=== PATIENT | female | born 1990 | race Hispanic/Latino ===

== ENCOUNTER 2018-01-16 10:52 | Emergency (ER) | payer OTHER ==
[2018-01-16] MEDS ORDERED: NA CHLORIDE 0.9% 1,000 ML ONE (11:37)
[2018-01-16 11:57] LABS: Absolute Neutrophil 15.5 K/uL (1.8-8.0); Basophils % 0.3 % (0-1.3); Hematocrit 38.4 % (36.0-45.0); Lymphocytes % 10.7 % (15.3-44.8); MCH 28.1 pg (27.0-35.0); MCV 84.3 fL (80-100); MPV 8.4 fL (7.6-11.3); Monocytes % 5.6 % (3.3-12.3); RBC Red Blood Cell Count 4.56 M/uL (3.86-4.86)
[2018-01-16 12:07] LABS: BUN Blood Urea Nitrogen 6 mg/dL (7-18); Bicarbonate 26 mmol/L (21-32); Glucose Level 107 mg/dL (74-106); Potassium 3.2 mmol/L (3.5-5.1); Sodium Level 137 mmol/L (136-145)
[2018-01-16] MEDS ORDERED: ACETAMINOPHEN 500 MG TAB ONE (12:46)
[2018-01-16 14:08] LABS: Urine Blood NEGATIVE (NEG); Urine Glucose NEGATIVE (NEG); Urine Protein 1+ (NEG); Urine Specific Gravity 1.025 (1.005-1.030); Urine pH 6.5 (5.0-7.0)
--- NOTE | 2018-01-16 14:25 | RAD REPORT ---
EXAM DESCRIPTION: CT - Soft Tissue Neck Wo Contr - 01/16/2018 2:03 pm CLINICAL HISTORY: Sore throat, possible peritonsillar abscess, patient 9 weeks TECHNIQUE: Axial 3 millimeter thick images of the neck were obtained without IV contrast. Abdominal and pelvic shielding was utilized during the examination. All CT scans are performed using dose optimization technique as appropriate and may include automated exposure control or mA/KV adjustment according to patient size. FINDINGS: Intracranial portion examination shows no gross abnormality. Globes and orbital contents u nremarkable. Mastoid air cells and paranasal sinuses are clear. There is marked enlargement of the left-side tonsil with the superior extent involving the left-side soft palate. Inferior extent reaches the valleculae and pyriform sinuses. . There is local mass effec t. Air or a is decreased approximately 50%. Left-sided the epiglottis is slightly thickened. Within the enlarged left tonsil there is an area of subtle diminished attenuation 3 x 2 cm in size. T onsillar abscess is most likely. The absence of contrast does limit the examination. There is no retr opharyngeal component identifiable. Patient has numerous left-side reactive lymph nodes present. These clustered lymph nodes are up to 15 mm in size. No acute bone finding. No air or foreign body in the soft tissues. IMPRESSION: Grossly enlarged left tonsil with central 3 x 2 cm area of slightly diminished attenuati on. Peritonsillar abscess is most likely in the acute setting. Absence of IV contrast limits full def inition. Left-side of the epiglottis, valleculae, piriform sinus and soft palate are mildly involved by the to nsillar process. Numerous clustered 8-15 mm reactive lymph nodes along the left side of the neck.
[2018-01-16] MEDS ORDERED: LIDOCAINE VISCOUS 2% SOLN 15 ML UDC ONE (15:02)
[2018-01-16] MEDS ORDERED: LIDOCAINE 2% MPF 5 ML VIAL ONE (15:02)
[2018-01-16] MEDS ORDERED: CLINDAMYCIN 600MG/D5W 600 MG/50 ML BAG IV ONE (15:50)
--- NOTE | 2018-01-16 16:32 | ER ---
Nurse's Notes [facility] Name: Marii Capps Age: 27 yrs Sex: Female : 1990 Arrival Date: 01/16/2018 Time: 10:54 Bed 16 Private MD: Diagnosis: Peritonsillar abscess Presentation: 01/16 11:08 Presenting complaint: Patient states: Sore throat for the past week. Was seen in the aj1 clinic on Saturday and told to let it run its course. She was seen at Urgent care today and the strep was negative. They told her to come to the emergency room for further evaluation. States that she has been unable to eat or drink anything. Reports that she is 9 weeks . Transition of care: patient was not received from another setting of care. Onset of symptoms was January 09, 2018. Risk Assessment: Do you want to hurt yourself or someone else? Patient reports no desire to harm self or others. Initial Sepsis Screen: Does the patient meet any 2 criteria? No. Patient's initial sepsis screen is negative. Does the patient have a suspected source of infection? Yes: Other: sore throat. Care prior to arrival: None. 11:08 Method Of Arrival: Ambulatory [facility] 11:08 Acuity: MADELEINE 3 aj1 Triage Assessment: 11:08 General: Appears uncomfortable, Behavior is cooperative. Pain: Pain currently is 10 out aj1 of 10 on a pain scale. EENT: Throat is reddened has enlarged tonsils on left. Neuro: Level of Consciousness is awake, alert, obeys commands. Cardiovascular: Patient's skin is warm and dry. Respiratory: Airway is patent Respiratory effort is even, unlabored, Respiratory pattern is regular, symmetrical. 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 - Social history:: Smoking status: Patient/guardian denies using tobacco. - Ebola Screening: : Patient denies travel to an Ebola-affected area in the 21 days before illness onset. Screenin:47 Abuse screen: Denies threats or abuse. Denies injuries from another. Nutritional ph screening: No deficits noted. Tuberculosis screening: No symptoms or risk factors identified. Fall Risk None identified. Assessment: 11:45 General: Appears in no apparent distress. uncomfortable, well groomed, Behavior is ph calm, cooperative, appropriate for age, Reports feeling ill for > 3 days. Pain: Complains of pain in throat. Neuro: Level of Consciousness is awake, alert, obeys commands, Oriented to person, place, time, situation. Cardiovascular: Capillary refill < 3 seconds Patient's skin is warm and dry. Respiratory: Airway is patent Respiratory effort is even, unlabored, Respiratory pattern is regular, symmetrical, Breath sounds are clear bilaterally. GI: No signs and/or symptoms were reported involving the gastrointestinal system. EENT: Throat is reddened has enlarged tonsils bilaterally Reports pain when swallowing. Derm: Skin is intact, Skin is pink, warm \T\ dry. Musculoskeletal: Circulation, motion, and sensation intact. Range of motion: intact in all extremities. 12:45 Reassessment: Patient appears in no apparent distress at this time. Patient and/or ph family updated on plan of care and expected duration. Pain level reassessed. Patient is alert, oriented x 3, equal unlabored respirations, skin warm/dry/pink. 13:50 Reassessment: Patient appears in no apparent distress at this time. Patient and/or ph family updated on plan of care and expected duration. Pain level reassessed. Patient is alert, oriented x 3, equal unlabored respirations, skin warm/dry/pink. Pt taken to CT via wheelchair. 15:45 Reassessment: Patient appears in no apparent distress at this time. Patient and/or ph family updated on plan of care and expected duration. Pain level reassessed. Patient is alert, oriented x 3, equal unlabored respirations, skin warm/dry/pink. Dr Mackay at bedside to drain peritonsillar abcess. Vital Signs: 11:08 BP 128 / 89; Pulse 133; Resp 18; Temp 96.9; Pulse Ox 98% on R/A; Weight 70.76 kg (R); aj1 Height 5 ft. 3 in. (160.02 cm); 11:48 BP 122 / 87; Pulse 114; Resp 20; Pulse Ox 99% on R/A; ph 14:05 BP 118 / 78; Pulse 117; Resp 18; Pulse Ox 98% on R/A; ph 15:30 BP 117 / 176; Pulse 104; Resp 18; Pulse Ox 98% on R/A; ph 11:08 Body Mass Index 27.63 (70.76 kg, 160.02 cm) aj1 ED Course: 10:54 Patient arrived in ED. as 10:59 Jennifer Snell FNP-C [facility] kb 10:59 Guillermo Mackay MD is Attending Physician. kb 11:08 Arm band placed on. aj1 11:10 Triage completed. aj1 11:13 Patient placed in an exam room. aj1 11:16 Linh Trevino, ANNA is Primary Nurse. ph 11:35 Initial lab(s) drawn, by me, sent to lab. Strep swab sent to lab. Inserted saline lock: ph 20 gauge in left antecubital area, using aseptic technique. Blood collected. 11:47 Patient has correct armband on for positive identification. Bed in low position. Call ph light in reach. Side rails up X 1. Pulse ox on. NIBP on. Warm blanket given. 14:02 CT completed. Patient tolerated procedure well. Patient moved to CT via wheelchair. sj Patient moved back from CT. 14:03 Soft Tissue Neck Wo Contr In Process Unspecified. EDMS 16:11 Assist provider with I \T\ D: of an abscess on left tonsillar area Set up I\T\D tray. ph Performed by Guillermo Mackay MD Culture sent to lab. Patient tolerated well. approx 6 cc of purulent drainage aspirated from site. 16:48 IV discontinued, intact, bleeding controlled, No redness/swelling at site. Pressure hb dressing applied. Administered Medications: 11:45 Drug: NS 0.9% 1000 ml Route: IV; Rate: 1000 ml; Site: left antecubital; ph 13:00 Follow up: Response: No adverse reaction; IV Status: Completed infusion ph 12:43 Drug: Tylenol 1000 mg Route: PO; ph 13:30 Follow up: Response: No adverse reaction ph 15:50 Drug: Clindamycin 600 mg Route: IVPB; Infused Over: 30 mins; Site: left antecubital; ph 16:20 Follow up: Response: No adverse reaction; IV Status: Completed infusion ph Outcome: 16:32 Discharge ordered by . kb 16:47 Discharged to home ambulatory. hb 16:47 Condition: stable 16:47 Discharge instructions given to patient, Instructed on discharge instructions, follow up and referral plans. medication usage, Demonstrated understanding of instructions, follow-up care, medications, Prescriptions given X 1. 16:49 Patient left the ED. hb Addendum: 01/19/2018 14:24 Addendum: Culture Results: Positive wound culture. Prescription called-in to pharmacy a a[facility] of choice. to [facility] pharmacy in [place], [place] per pt's request. Pt was instructed to stop Clindamycin and begin taking Penicillin VK per BINH Valdez. Signatures: Dispatcher [employer] EDMS Jennifer Snell, COLLATING MACHINE OPERATOR-C COLLATING MACHINE OPERATOR-Ckb Mely Tavares RN RN aj1 Ana Rosa Murillo Amelia as Calderon, Audri, RN RN aa5 Linh Trevino RN RN Lo Casas RN RN Corrections: (The following items were deleted from the chart) 01/16 11:11 11:08 Presenting complaint: Patient states: Sore throat for the past week. Was seen in [facility] the clinic on Saturday and told to let it run its course. She was seen at Urgent care today and the strep was negative. They told her to come to the emergency room for further evaluation aj1 11:11 11:08 Acuity: MADELEINE 4 aj aj1 11:13 11:08 Presenting complaint: Patient states: Sore throat for the past week. Was seen in [facility] the clinic on Saturday and told to let it run its course. She was seen at Urgent care today and the strep was negative. They told her to come to the emergency room for further evaluation. States that she has been unable to eat or drink anything [facility] 01/19 14:42 14:24 Addendum: Culture Results: Positive wound culture. Prescription called-in to [facility] pharmacy of choice. to [facility] pharmacy in [place], [place] per pt's request. aa5
--- NOTE | 2018-01-16 16:33 | EDPHYS ---
Physician Documentation [facility] Name: Marii Capps Age: 27 yrs Sex: Female : 1990 Arrival Date: 01/16/2018 Time: 10:54 Bed 16 Private MD: ED Physician Guillermo Mackay HPI: 01/16 14:25 This 27 yrs old Female presents to ER via Ambulatory with complaints of Sore kb Throat. 14:25 The patient presents with sore throat. The patient describes throat pain as constant. kb Onset: The symptoms/episode began/occurred 1 week(s) ago. Severity of symptoms: At their worst the symptoms were moderate, in the emergency department the symptoms are unchanged. Modifying factors: The symptoms are alleviated by nothing, the symptoms are aggravated by swallowing, Patient's oral intake status: limited fluid intake, limited food intake. Associated signs and symptoms: Pertinent positives: Sore throat. The patient has not experienced similar symptoms in the past. The patient has been recently seen at an urgent care, just prior to arrival, for similar complaints, and was sent to the [facility] Emergency Department for further evaluation. Pt states her throat started hurting a week ago and the left side has been getting bigger since then. Went to the clinic on Saturday and was told it was a virus and to let it take its course. Went to today and was told to come to ER for evaluation. 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 - Social history:: Smoking status: Patient/guardian denies using tobacco. - Ebola Screening: : Patient denies travel to an Ebola-affected area in the 21 days before illness onset. ROS: 14:24 Constitutional: Negative for fever, chills, and weight loss, Cardiovascular: Negative kb for chest pain, palpitations, and edema, Respiratory: Negative for shortness of breath, cough, wheezing, and pleuritic chest pain, Abdomen/GI: Negative for abdominal pain, nausea, vomiting, diarrhea, and constipation, Back: Negative for injury and pain, MS/Extremity: Negative for injury and deformity, Skin: Negative for injury, rash, and discoloration, Neuro: Negative for headache, weakness, numbness, tingling, and seizure. 14:24 ENT: Positive for sore throat. Exam: 14:24 Constitutional: This is a well developed, well nourished patient who is awake, alert, kb and in no acute distress. Head/Face: Normocephalic, atraumatic. Chest/axilla: Normal chest wall appearance and motion. Nontender with no deformity. No lesions are appreciated. Cardiovascular: Regular rate and rhythm with a normal S1 and S2. No gallops, murmurs, or rubs. Normal PMI, no JVD. No pulse deficits. Respiratory: Lungs have equal breath sounds bilaterally, clear to auscultation and percussion. No rales, rhonchi or wheezes noted. No increased work of breathing, no retractions or nasal flaring. Abdomen/GI: Soft, non-tender, with normal bowel sounds. No distension or tympany. No guarding or rebound. No evidence of tenderness throughout. Skin: Warm, dry with normal turgor. Normal color with no rashes, no lesions, and no evidence of cellulitis. MS/ Extremity: Pulses equal, no cyanosis. Neurovascular intact. Full, normal range of motion. Neuro: Awake and alert, GCS 15, oriented to person, place, time, and situation. Cranial nerves II-XII grossly intact. Motor strength 5/5 in all extremities. Sensory grossly intact. Cerebellar exam normal. Normal gait. 14:24 ENT: Posterior pharynx: Airway: normal, no evidence of obstruction, Tonsils: enlarged on the left, with erythema, Uvula: normal, midline, swelling, that is moderate, erythema, that is marked. Vital Signs: 11:08 BP 128 / 89; Pulse 133; Resp 18; Temp 96.9; Pulse Ox 98% on R/A; Weight 70.76 kg (R); aj1 Height 5 ft. 3 in. (160.02 cm); 11:48 BP 122 / 87; Pulse 114; Resp 20; Pulse Ox 99% on R/A; ph 14:05 BP 118 / 78; Pulse 117; Resp 18; Pulse Ox 98% on R/A; ph 15:30 BP 117 / 176; Pulse 104; Resp 18; Pulse Ox 98% on R/A; ph 11:08 Body Mass Index 27.63 (70.76 kg, 160.02 cm) aj1 Procedures: 15:38 I \T\ D: Incision and drainage was performed for an abscess of the left peritonsillar rn area. Anesthetized with 2 ml's 1% Lidocaine. Incised with 20 g needle. Drained moderate amount purulent fluid. the patient tolerated the procedure well, 6cc purulent fluid removed, tolerated well. MDM: 11:15 Patient medically screened. kb 14:23 Data reviewed: vital signs, nurses notes. Data interpreted: Pulse oximetry: on room air kb is 98 %. Interpretation: normal. 15:36 Counseling: I had a detailed discussion with the patient and/or guardian regarding: the kb historical points, exam findings, and any diagnostic results supporting the discharge/admit diagnosis, lab results, radiology results, the need for outpatient follow up, an ENT specialist, to return to the emergency department if symptoms worsen or persist or if there are any questions or concerns that arise at home. 01/16 11:16 Order name: CBC with Diff; Complete Time: 12:12 kb 01/16 11:16 Order name: Basic Metabolic Panel; Complete Time: 12:12 kb 01/16 11:16 Order name: Strep; Complete Time: 12:12 kb 01/16 12:10 Order name: Throat Culture EDMS 01/16 12:49 Order name: Urine Dipstick--Ancillary (enter results); Complete Time: 14:09 dh3 01/16 12:49 Order name: Urine --Ancillary (enter results); Complete Time: 14:09 3 01/16 11:16 Order name: IV Start; Complete Time: 11:45 kb 01/16 11:16 Order name: Urine Dipstick-Ancillary (obtain specimen); Complete Time: 12:35 kb 01/16 13:41 Order name: Soft Tissue Neck Wo Contr; Complete Time: 14:30 EDMS 01/16 15:39 Order name: Wound Culture rn Administered Medications: 11:45 Drug: NS 0.9% 1000 ml Route: IV; Rate: 1000 ml; Site: left antecubital; ph 13:00 Follow up: Response: No adverse reaction; IV Status: Completed infusion ph 12:43 Drug: Tylenol 1000 mg Route: PO; ph 13:30 Follow up: Response: No adverse reaction ph 15:50 Drug: Clindamycin 600 mg Route: IVPB; Infused Over: 30 mins; Site: left antecubital; ph 16:20 Follow up: Response: No adverse reaction; IV Status: Completed infusion ph Disposition: 16:51 Co-signature as Attending Physician, Guillermo Mackay MD. rn Disposition: 01/16/18 16:32 Discharged to Home. Impression: Peritonsillar abscess. - Condition is Stable. - Discharge Instructions: Peritonsillar Abscess, [id number], Peritonsillar Abscess. - Prescriptions for Clindamycin HCl 300 mg Oral Capsule - take 1 capsule by ORAL route every 6 hours for 10 days; 40 capsule. - Medication Reconciliation Form, Thank You Letter, Antibiotic Education, Prescription Opioid Use form. - Follow up: Emergency Department; When: As needed; Reason: Worsening of condition. Follow up: Private Physician; When: 2 - 3 days; Reason: Recheck today's complaints, Continuance of care, Re-evaluation by your physician. Signatures: Dispatcher [employer] [facility] Jennifer Snell, KRZYSZTOF-C HEALTH PROMOTION EDUCATOR-CkMely Martin RN RN aj1 Guillermo Mackay MD MD rn Hall, Patricia, RN RN Lo Casas RN RN Corrections: (The following items were deleted from the chart) 13:42 13:37 Soft Tissue Neck W/Contr+CT.RAD.BRZ ordered. [facility] 16:49 16:32 01/16/2018 16:32 Discharged to Home. Impression: Peritonsillar abscess. Condition hb is Stable. Discharge Instructions: Peritonsillar Abscess. Forms are Medication Reconciliation Form, Thank You Letter, Antibiotic Education, Prescription Opioid Use. Follow up: Emergency Department; When: As needed; Reason: Worsening of condition. Follow up: Private Physician; When: 2 - 3 days; Reason: Recheck today's complaints, Continuance of care, Re-evaluation by your physician. kb
[2018-01-16 17:01] VITALS: TEMP 96.9
[2018-01-16 17:04] VITALS: BP 118/78; O2SAT 98
== END 2018-01-16 16:49 | disposition home or self-care (01) ==
LOC: ER 10:52
PROC: 0C9PXZZ Drainage of Tonsils, External Approach (ICD-10-PCS; principal; 2018-01-16)
DX: J36 Peritonsillar abscess (principal)
CPT/HCPCS: 36415; 42700; 70490; 80048; 81003; 81025; 85025; 87070 ×2; 87077; 87081; 87186; 87205; 96361; 96365; 99285; J7030

== ENCOUNTER 2018-02-14 13:33 | Emergency (ER) | payer OTHER ==
--- OUTSIDE RECORDS SUMMARY | 2018-02-14 13:35 | XMS REPORT | Continuity of Care Document ---
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 (Same as: [place] 325/10) ropivacaine Dosing: Per No Longer Nerve Block Active 2016 [place] Dosing Order, Route: NERVE BLOCK, Start date: 08/16/16 9:26:00 CDT 400 mL, Drug Form: INJ, Dosing Weight 72.273, kg, Duration: 30 day, Stop date: 09/15/16 9:25:00 CDTNotes: Final concentration: Ropivacaine 0.2% 400 ml Phenergan 12.5 mg, Route: Inactive IVPB, Q4H, 2017 [place] Dosing Weight 72.273, kg, PRN Nausea & Vomiting, Start date: 08/16/16 9:14:00 CDT, Duration: 30 day, Stop date: 09/15/16 9:13:00 CDT Fentanyl 25 microgram, No Longer 0.5 mL, Route: Active 2016 [place] IVP, Drug form: INJ, Q5Min, Dosing Weight 72.273, kg, PRN Pain Score 4-6, Priority: Routine, Start date: 08/16/16 9:04:00 CDT, Duration: 4 doses or times, Stop date: Limited # of timesNotes: (Same as: Sublimaze) Preservative free. Oxycodone 5 mg, 1 tab, No Longer Route: PO, Drug Active 2016 [place] form: TAB, Q4H, Dosing Weight 72.273, kg, PRN Pain Score 4-6, Start date: 08/16/16 9:04:00 CDT, Duration: 30 day, Stop date: 09/15/16 9:03:00 CDTNotes: (Same as: Roxicodone) Hydromorphone 0.5 mg, 0.5 mL, No Longer Route: IVP, Drug Active 2016 [place] form: INJ, Q5Min, Dosing Weight 72.273, kg, PRN Pain Score 7-10, Start date: 08/16/16 9:04:00 CDT, Duration: 4 doses or times, Stop date: Limited # of timesNotes: Same as: Dilaudid Hydralazine 10 mg, 0.5 mL, No Longer Route: IVP, Drug Active 2016 [place] form: INJ, Q20Min, Dosing Weight 72.273, kg, PRN Elevated BP, Start date: 08/16/16 9:04:00 CDT, Duration: 2 doses or times, Stop date: Limited # of timesNotes: (Same as: Apresoline) Push over 5 minutes Acetaminophen 1,000 mg, 2 tab, No Longer Route: PO, Drug Active 2016 [place] form: TAB, ONCE, Dosing Weight 72.273, kg, PRN Pain Score 1-3, Start date: 08/16/16 9:04:00 CDT, Duration: 1 doses or times, Stop date: Limited # of timesNotes: Max acetaminophen 4000 mg/day (4 gm/day). (Same as: Tylenol Extra Strength) Labetalol 10 mg, 2 mL, No Longer Route: IVP, Drug Active 2016 [place] form: INJ, Q5Min, Dosing Weight 72.273, kg, PRN Elevated BP, Start date: 08/16/16 9:04:00 CDT, Duration: 5 doses or times, Stop date: Limited # of timesNotes: (Same as: Normodyne, Trandate) Push over 2 minutes Give bolus over 2-3 minutes. Ketorolac 30 mg, 1 mL, Inactive Route: IVP, Drug 2016 [place] form: INJ, ONCE, Dosing Weight 72.273, kg, Start date: 08/16/16 9:04:00 CDT, Duration: 1 doses or times, Stop date: 08/16/16 9:04:00 CDTNotes: (Same as:Toradol) IV bolus must be given >15 seconds. Give IM administration slowly and deeply into the muscle. Not for use > 4 days MEDICATION WASTE Product Size: 30 mg Product Wasted: ___ mg Ondansetron 4 mg, 2 mL, No Longer Route: IVP, Drug Active 2016 [place] form: INJ, ONCE, Dosing Weight 72.273, kg, PRN Nausea & Vomiting, Start date: 08/16/16 9:04:00 CDTNotes: (Same as: Zofran) MEDICATION WASTE Product Size: 4 mg Product Wasted: ___ mg Flumazenil 0.2 mg, 2 mL, No Longer Route: IVP, Drug Active 2016 [place] form: INJ, PRN, Dosing Weight 72.273, kg, PRN Benzodiazepine Reversal, Initial dose, Start date: 08/16/16 9:04:00 CDT, Duration: 30 day, Stop date: 09/15/16 9:03:00 CDTNotes: (Same as: Romazicon) Naloxone 0.4 mg, 1 mL, No Longer Route: IVP, Drug Active 2016 [place] form: INJ, Q2MIN, Dosing Weight 72.273, kg, PRN Narcotic Reversal, Start date: 08/16/16 9:04:00 CDT, Duration: 8 doses or times, Stop date: Limited # of timesNotes: Same as Narcan Diphenhydramine 12.5 mg, 0.25 No Longer 05/25/ MH mL, Route: IVP, Active 2016 [place] Drug form: INJ, Q6H, Dosing Weight 72.273, kg, PRN Itching, Start date: 08/16/16 9:04:00 CDT, Duration: 30 day, Stop date: 09/15/16 9:03:00 CDTNotes: (Same as: Benadryl) Albuterol 0.83 2.49 mg, 3 mL, No Longer MG/ML Inhalant Route: NEB, Drug Active 2016 [place] Solution form: SOLN, Q20Min, Dosing Weight 72.273, kg, PRN Wheezing, Priority: STAT, Start date: 08/16/16 9:04:00 CDT, Duration: 30 day, Stop date: 09/15/16 9:03:00 CDTNotes: SEE RT DOCUMENTATION (Same as: Proventil) fentaNYL (ANES) Route: IV, Drug Inactive MH form: INJ, ONCE, 2016 [place] Stop date: 08/16/16 8:55:00 CDT ondansetron Route: IV, Drug Inactive 08/16/ MH (ANES) form: INJ, ONCE, 2016 [place] Stop date: 08/16/16 8:55:00 CDT Dilaudid (ANES) Route: IV, Drug Inactive 08/16/ MH form: INJ, ONCE, 2016 [place] Stop date: 08/16/16 8:55:00 CDT ceFAZolin (ANES) Route: IV, Drug Inactive 08/16/ MH form: INJ, ONCE, 2016 [place] Stop date: 08/16/16 8:34:00 CDT dexamethasone Route: IV, Drug Inactive 08/16/ MH (ANES) form: INJ, ONCE, 2016 [place] Stop date: 08/16/16 8:19:00 CDT propofol (ANES) Route: IV, Drug Inactive 08/16/ MH form: INJ, ONCE, 2016 [place] Stop date: 08/16/16 8:14:00 CDT midazolam (ANES) Route: IV, Drug Inactive 08/16/ MH form: SOLN, 2016 [place] ONCE, Stop date: 08/16/16 8:14:00 CDT ceFAZolin + 2 gm, Route: No Longer sodium chloride IVPB, ONCALL, Active 2016 [place] 0.9% INJ 100 mL Start date: 08/16/16 7:00:00 CDT, Duration: 1 day, Stop date: 08/17/16 6:59:00 CDT, ABX Indication: Surgical ProphylaxisNotes : (Same As: AncTristian hernandezl) MEDICATION WASTE Product Size: 1000 mg Product Wasted: ___ mg LR 1000 mL INJ Route: IV, Total Inactive (ANES) Volume: 1,000, 2016 [place] Start date: 08/16/16 6:45:00 CDT, Stop date: 08/16/16 7:45:00 CDT Lactated Ringers 1,000 mL, Rate: No Longer 1,000 mL 40 ml/hr, Infuse Active 2016 [place] over: 25 hr, Route: IV, Dosing Weight 72.273 kg, Total Volume: 1,000, Start date: 08/16/16 5:46:00 CDT, Duration: 30 day, Stop date: 09/15/16 5:45:00 CDT DULoxetine 60 mg 60 mg=1 cap, PO, Active oral delayed Daily, # 30 cap, 2016 [place] release capsule 0 Refill(s) Allergies, Adverse Reactions, Alerts Substance Category Reaction Severity Reaction Status Date Comments Source type Reported Immunizations Immunization Date Given Site Status Last Updated Comments Source Results Order Name Results Value Reference Date Interpretation Comments Source Range URINE CHEM U Preg Negative Negative 08/16 [place] (08/16/16 5:48 AM) Calcaneus Calcaneus Patient Name: HONEY BANG 08/16 - [facility] series DX series - John : 1990; Age: 26 years y/o Female MR: [id number] Read by: Jarad Zamora MD Dictated Date/time: 08/16/16 10:27 Electronically Signed by: Jarad Zamora MD 08/16/16 10:29 FINAL REPORT Study: Calcaneus series DX 08/16/2016 8:54 AM CDT Ordering Physician: Lillie Tavares MD Clinical Indication: Calcaneous Osteotomy Time 44.5 sec Dose .92 mGy - Calcaneous Osteotomy Time 44.5 sec Dose .92 mGy; Comparison: None 4 views of the left calcaneus are submitted. Osteotomy through the posterior body of the calcaneus, stabilized with 2 bone screws. There is 7 mm medial offset of the posterior calcaneal fragment at the osteotomy site. SL: [id number] Ankle wo Ankle wo EXAM: MR LEFT ANKLE WITHOUT CONTRAST 04/27 - [facility] contrast contrast /2016 - [place] [facility] This report was dictated by a Material Control Specialist/Fellow. I have personally reviewed the images as well as the Resident's interpretation and agree with the findings. DATE: 04/27/2016 0926 hours Read by: Amberly Kirkpatrick MD Resident: Amberly Kirkpatrick MD Dictated Date/time: 04/27/16 10:27 Electronically Signed by: Armond Giang MD 04/28/16 08:41 FINAL REPORT INDICATION: M25.572 Pain in left ankle and joints of left foot COMPARISON: Bilateral foot radiographs from 09/23/2012 TECHNIQUE: Multiplanar noncontrast imaging of the ankle. FINDINGS: Alignment: There is normal in call alignment. Pes cavus deformity is again seen. MEDIAL COMPARTMENT: Posterior tibial, flexor hallucis longus, flexor digitorum longus tendons: Normal. Deltoid ligament complex (superficial/deep): Normal. Spring ligament: Normal. LATERAL COMPARTMENT: Peroneus longus and brevis tendons: Normal. Anterior inferior tibiofibular, posterior inferior tibiofibular, anterior talofibular ligaments: The anterior talofibular ligament is thickened with diffusely decreased signal intensity compatible with scarring. The posterior talofibular ligament appears attenuated but without focal tear. Calcaneofibular ligament: Intact. GENERAL: Bones: There is reactive bone marrow edema subjacent to an area of chondromalacia at the anterolateral tibial plafond. There is abnormal articulation between the anterior process of the calcaneus and th e talus, reflective of patient's underlying pes cavus deformity. Marrow edema and cystic change is also seen at this articulation. Muscles: There is severe atrophy and fatty infiltration of all the intrinsic muscles of the foot. Cartilage: There is diffuse cartilage thinning at the tibiotalar joint with a focal full-thickness cartilage fissure at the anterolateral aspect of the tibial plafond and with associated subjacent reactive bone marrow edema. Tarsal tunnel: Normal. Sinus tarsi: Sinus tarsi is decreased in size secondary to patient's pes cavus deformity. No abnormal signal seen within the sinus tarsi. IMPRESSION: 1. Diffuse, severe muscular atrophy and fatty infiltration of all intrinsic foot musculature. 2. 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 3. Pes cavus deformity with articulation of the anterior process of the calcaneus with the talus and secondary reactive bone marrow edema and cystic change at the anterior calcaneal process. 4. Thickened and scarred anterior talofibular ligament. Foot 3 Foot 3 EXAM: Foot 3 views Bilateral 09/23 - [facility] views views /2012 - [place] Bilateral Bilateral This report was dictated by a Material Control Specialist/ Fellow. I have personally reviewed the images as well as the Resident's interpretation and agree with the findings. DATE: 09/23/2012 Read by: Jose Reardon Resident: Jose Reardon Dictated Date/time: 09/23/12 14:25 Electronically Signed by: Taty Chappell MD 09/23/12 18:32 FINAL REPORT INDICATION: 719.47 foot pain COMPARISON: None. TECHNIQUE: AP, lateral and oblique views of both feet FINDINGS: No acute fracture or dislocation. There is pes cavus deformity bilaterally. Soft tissues are within normal limits. IMPRESSION: Bilateral pes cavus deformity. Vital Signs Vital Sign Value Date Comments Source Systolic (mm Hg) 116 08/16/2016 [facility] Diastolic (mm Hg) 72 08/16/2016 [facility] Respitory Rate 16 08/16/2016 [facility] Respitory Rate 12 08/16/2016 [facility] Systolic (mm Hg) 122 08/16/2016 [facility] Diastolic (mm Hg) 77 08/16/2016 [facility] Systolic (mm Hg) 122 08/16/2016 [facility] Diastolic (mm Hg) 80 08/16/2016 [facility] Respitory Rate 10 08/16/2016 [facility] Height 160.02 cm 08/15/2016 [facility] BMI Calculated 28.22 08/15/2016 [facility] Weight 72.273 08/15/2016 [facility] Weight 72.727 10/03/2011 [facility] Height 157.48 cm 10/03/2011 [facility] Encounters Location Location Encounter Encounter Reason Attending ADM DC Status Source Details Type Number For Provider Date Date Visit [facility] Outpatient [id number] PADMINI OROZCO 10/02 Active [facility] Medical [facility] NEUROPAT Center HY [facility] Outpt Diag [id number] Francy 04/27 04/28 [facility] 1 John Lopez [facility] OP Therapy [id number] Francy 05/04 06/03 [facility] Patients 0 [facility] Surgery [id number] Lillie 08/16 08/16 John 2 Maddy [facility] Procedures Procedure Code Date Perfomer Comments Source Ankle joint [id number] biopsy of [facility] operations<sup>1 ankle nerve </sup> section [id number] [facility]
--- OUTSIDE RECORDS SUMMARY | 2018-02-14 13:35 | XMS REPORT | Summary of Care ---
:1990 Author Organization [facility] Encounter [facility] Encntr_alias(RADHA) [id number] Date(s): 05/04/16 - 06/02/16 [facility] Discharge Disposition: Home or Self Care Attending Physician: Francy Mills MD Vital Signs No data available for this section Problem List No data available for this section Allergies, Adverse Reactions, Alerts Substance Reaction Severity Status NKDA Active Medications No data available for this section Results No data available for this section Immunizations No data available for this section Procedures No data available for this section Social History No data available for this section Assessment and Plan No data available for this section
--- OUTSIDE RECORDS SUMMARY | 2018-02-14 13:35 | XMS REPORT | Summary of Care ---
:1990 Author Organization [facility] [place] Address [address] [place] [phone]- Encounter [facility] Encntr_alias(FIN) [id number] Date(s): 04/27/16 - 04/27/16 [facility] [place] [address] [place] [address]- [phone] Discharge Disposition: Home or Self Care Attending [...]
--- OUTSIDE RECORDS SUMMARY | 2018-02-14 13:36 | XMS REPORT | Summary of Care ---
:1990 Author Organization [facility] Address [address] [place] [id number]- Encounter [facility] Melody_javier(FIN) [id number] Date(s): 08/16/16 - 08/16/[address] [address] [phone] Discharge Disposition: Home or Self Care Attending Physician: Lillie Tavares MD Referring Physician: Lillie Tavares MD Vital Signs Most recent to oldest 1 2 3 [Reference Range]: Height 160.02 cm (08/15/16 10:44 AM) Blood Pressure [90-140/60-90 116/72 mmHg 122/77 mmHg 122/80 mmHg mmHg] (08/16/16 11:20 AM) (08/16/16 11:00 AM) (08/16/16 10:50 AM) Respiratory Rate [14-20 16 BRMIN 12 BRMIN 10 BRMIN BRMIN] (08/16/16 11:20 AM) *LOW* *LOW* (08/16/16 11:00 AM) (08/16/16 10:50 AM) Weight 72.273 kg (08/15/16 10:44 AM) Body Mass Index 28.22 m2 (08/15/16 10:44 AM) Problem List Condition Effective Dates Status Health Status Informant Depression with anxiety(Confirmed) Active 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 (Same as: Tylenol Extra Strength) Start Date: 08/16/16 Stop Date: 08/17/16 Status: DiscontinuedANES albuterol 0.083% inhalation solution 2.49 mg, 3 mL, Route: NEB, Drug form: SOLN, Q20Min, Dosing Weight 72.273, kg, PRN Wheezing, Priority: STAT, Start date: 08/16/16 9:04:00 CDT, Duration: 30 day , Stop date: 09/15/16 9:03:00 CDT Notes: SEE RT DOCUMENTATION (Same as: Proventil) Start Date: 08/16/16 Stop Date: 08/17/16 Status: DiscontinuedANES diphenhydrAMINE 12.5 mg, 0.25 mL, Route: IVP, Drug form: INJ, Q6H, Dosing Weight 72.273, kg, PRN Itching, Start date: 08/16/16 9:04:00 CDT, Duration: 30 day, Stop date: 9:03:00 CDT Notes: (Same as: Benadryl) Start Date: 08/16/16 Stop Date: 08/17/16 Status: DiscontinuedANES fentaNYL 25 microgram, 0.5 mL, Route: IVP, Drug form: INJ, Q5Min, Dosing Weight 72.273, kg, PRN Pain Score 4-6, Priority: Routine, Start date: 08/16/16 9:04:00 CDT, Duration: 4 doses or times, Stop date: Limited # of times Notes: (Same as: Sublimaze) Preservative free. Start Date: 08/16/16 Stop Date: 08/17/16 Status: DiscontinuedANES fentaNYL 50 microgram, 1 mL, Route: IVP, Drug form: INJ, Q5Min, Dosing Weight 72.273, kg , PRN Pain Score 7-10, Priority: Routine, Start date: 08/16/16 9:04:00 CDT, Duration: 2 doses or times, Stop date: Limited# of times Notes: (Same as: Sublimaze) Preservative free. Start Date: 08/16/16 Stop Date: 08/17/16 Status: DiscontinuedANES flumazenil 0.2 mg, 2 mL, Route: IVP, Drug form: INJ, PRN, Dosing Weight 72.273, kg, PRN Benzodiazepine Reversal, Initial dose, Start date: 08/16/16 9:04:00 CDT, Duration: 30 day, Stop date: 09/15/16 9:03:00 CDT Notes: (Same as: Romazicon) Start Date: 08/16/16 Stop Date: 08/17/16 Status: DiscontinuedANES hydrALAZINE 10 mg, 0.5 mL, Route: IVP, Drug form: INJ, Q20Min, Dosing Weight 72.273, kg, PRN Elevated BP, Start date: 08/16/16 9:04:00 CDT, Duration: 2 doses or times, Stop date: Limited # of times Notes: (Same as: Apresoline)Push over 5 minutes Start Date: 08/16/16 Stop Date: 08/17/16 Status: DiscontinuedANES HYDROmorphone 0.5 mg, 0.5 mL, Route: IVP, Drug form: INJ, Q5Min, Dosing Weight 72.273, kg, PRN Pain Score 7-10, Start date: 08/16/16 9:04:00 CDT, Duration: 4 doses or times, Stop date: Limited # of times Notes: Same as: Dilaudid Start Date: 08/16/16 Stop Date: 08/17/16 Status: DiscontinuedANES ketOROLAC 30 mg, 1 mL, Route: IVP, Drug form: INJ, ONCE, Dosing Weight 72.273, kg, Start date: 08/16/16 9:04:00 CDT, Duration: 1 doses or times, Stop date: 08/16/16 9:04 :00 CDT Notes: (Same as:Toradol) IV bolus must be given >15 seconds. Give IM administration slowly and deeply into the muscle.Not for use > 4 days MEDICATION WASTE Product Size: 30 mgProduct Wasted: ___ mg Start Date: 08/16/16 Stop Date: 08/16/16 Status: OrderedANES labetalol 10 mg, 2 mL, Route: IVP, Drug form: INJ, Q5Min, Dosing Weight 72.273, kg, PRN Elevated BP, Start date: 08/16/16 9:04:00 CDT, Duration: 5 doses or times, Stop date: Limited # of times Notes: (Same as: Normodyne, Trandate)Push over 2 minutes Give bolus over 2-3 minutes. Start Date: 08/16/16 Stop Date: 08/17/16 Status: DiscontinuedANES naloxone 0.4 mg, 1 mL, Route: IVP, Drug form: INJ, Q2MIN, Dosing Weight 72.273, kg, PRN Narcotic Reversal, Start date: 08/16/16 9:04:00 CDT, Duration: 8 doses or times , Stop date: Limited # of times Notes: Same as Narcan Start Date: 08/16/16 Stop Date: 08/17/16 Status: DiscontinuedANES ondansetron 4 mg, 2 mL, Route: IVP, Drug form: INJ, ONCE, Dosing Weight 72.273, kg, PRN Nausea & Vomiting, Start date: 08/16/16 9:04:00 CDT Notes: (Same as: Shyla) MEDICATION WASTE Product Size: 4 mgProduct Wasted: ___ mg Start Date: 08/16/16 Stop Date: 08/17/16 Status: DiscontinuedANES oxyCODONE 5 mg, 1 tab, Route: PO, Drug form: TAB, Q4H, Dosing Weight 72.273, kg, PRN Pain Score 4-6, Start date: 08/16/16 9:04:00 CDT, Duration: 30 day, Stop date: 9:03:00 CDT Notes: (Same as: Roxicodone) Start Date: 08/16/16 Stop Date: 08/17/16 Status: DiscontinuedceFAZolin (ANES) Route: IV, Drug form: INJ, ONCE, Stop date: 08/16/16 8:34:00 CDT Start Date: 08/16/16 Stop Date: 08/16/16 Status: CompletedceFAZolin + sodium chloride 0.9% INJ 100 mL 2 gm, Route: IVPB, ONCALL, Start date: 08/16/16 7:00:00 CDT, Duration: 1 day, Stop date: 08/17/16 6:59:00 CDT, ABX Indication: Surgical Prophylaxis Notes: (Same As: Quinn Strauss) MEDICATION WASTE Product Size: 1000 mgProduct Wasted: ___ mg Start Date: 08/16/16 Stop Date: 08/17/16 Status: Discontinueddexamethasone (ANES) Route: IV, Drug form: INJ, ONCE, Stop date: 08/16/16 8:19:00 CDT Start Date: 08/16/16 Stop Date: 08/16/16 Status: CompletedDilaudid (ANES) Route: IV, Drug form: INJ, ONCE, Stop date: 08/16/16 8:55:00 CDT Start Date: 08/16/16 Stop Date: 08/16/16 Status: CompletedDULoxetine 60 mg oral delayed release capsule 60 mg=1 cap, PO, Daily, # 30 cap, 0 Refill(s) Start Date: 08/15/16 Status: OrderedfentaNYL (ANES) Route: IV, Drug form: INJ, ONCE, Stop date: 08/16/16 8:55:00 CDT Start Date: 08/16/16 Stop Date: 08/16/16 Status: CompletedLactated Ringers 1,000 mL 1,000 mL, Rate: 40 ml/hr, Infuse over: 25 hr, Route: IV, Dosing Weight 72.273 kg , Total Volume: 1,000, Start date: 08/16/16 5:46:00 CDT, Duration: 30 day, Stop date: 09/15/16 5:45:00 CDT Start Date: 08/16/16 Stop Date: 08/17/16 Status: DiscontinuedLR 1000 mL INJ (ANES) Route: IV, Total Volume: 1,000, Start date: 08/16/16 6:45:00 CDT, Stop date: 7:45:00 CDT Start Date: 08/16/16 Stop Date: 08/16/16 Status: Completedmidazolam (ANES) Route: IV, Drug form: SOLN, ONCE, Stop date: 08/16/16 8:14:00 CDT Start Date: 08/16/16 Stop Date: 08/16/16 Status: CompletedNorco 10/325 oral tablet 1 tab, Route: PO, Drug Form: TAB, Dosing Weight 72.273, kg, Q6H, PRN Pain Score 4-6, Start date: 08/16/16 11:02:00 CDT, Duration: 30 day, Stop date: 09/15/16 11 :01:00 CDT Notes: Do not exceed 4gm/day of acetaminophen. (Same as: Jossy 325/10) Start Date: 08/16/16 Stop Date: 08/17/16 Status: Discontinuedondansetron (ANES) Route: IV, Drug form: INJ, ONCE, Stop date: 08/16/16 8:55:00 CDT Start Date: 08/16/16 Stop Date: 08/16/16 Status: CompletedPhenergan 12.5 mg, Route: IVPB, Q4H, Dosing Weight 72.273, kg, PRN Nausea & Vomiting, Start date: 179:14:00 CDT, Duration: 30 day, Stop date: 09/15/16 9:13:00 CDT Start Date: 08/16/16 Stop Date: 08/16/16 Status: Discontinuedpropofol (ANES) Route: IV, Drug form: INJ, ONCE, Stop date: 08/16/16 8:14:00 CDT Start Date: 08/16/16 Stop Date: 08/16/16 Status: CompletedRopivacaine 0.2% 400ML OnQ CB004 400 mL Dosing: Per Nerve Block Dosing Order, Route: NERVE BLOCK, Start date: 08/16/16 9 :26:00 CDT 400 mL, Drug Form: INJ, Dosing Weight 72.273, kg, Duration: 30 day, Stop date: 09/15/16 9:25:00 CDT Notes: Final concentration: Ropivacaine 0.2% 400 ml Start Date: 08/16/16 Stop Date: 08/17/16 Status: Discontinued Results URINE CHEM Most recent to oldest [Reference Range]: 1 U Preg [Negative] Negative (08/16/16 5:48 AM) Immunizations No data available for this section Procedures Procedure Date Related Diagnosis Body Site Ankle joint operations1 section 1biopsy of ankle nerve Social History Social History Type Response Smoking Status Never smoker; Exposure to Tobacco Smoke None; Cigarette Smoking Last 365 Days No; Reg Smoking Cessation Counseling No Assessment and Plan No data available for this section
--- NOTE | 2018-02-14 17:04 | ER ---
Nurse's Notes [facility] Name: Marii Capps Age: 27 yrs Sex: Female : 1990 Arrival Date: 02/14/2018 Time: 13:35 Bed 9 Private MD: Diagnosis: Acute tonsillitis;Fever, unspecified; related conditions, unspecified, first trimester Presentation: 02/14 14:08 Presenting complaint: Patient states: she had a peritonsillar abscess drained here a aa5 few weeks ago and states "I think it's back now because my throat started hurting yesterday and I feel a lump on the left side of my neck". Pt states "I am 14 weeks ". Transition of care: patient was not received from another setting of care. Onset of symptoms was January 2018. Risk Assessment: Do you want to hurt yourself or someone else? Patient reports no desire to harm self or others. Initial Sepsis Screen: Does the patient meet any 2 criteria? No. Patient's initial sepsis screen is negative. Does the patient have a suspected source of infection? No. Patient's initial sepsis screen is negative. Care prior to arrival: None. 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 - Social history:: Smoking status: Patient/guardian denies using tobacco. - Ebola Screening: : No symptoms or risks identified at this time. - Family history:: not pertinent. Screenin:45 Abuse screen: Denies threats or abuse. Nutritional screening: No deficits noted. aa5 Tuberculosis screening: No symptoms or risk factors identified. Fall Risk None identified. Assessment: 15:45 General: Appears uncomfortable, Behavior is calm, cooperative. Pain: Complains of pain aa5 in throat Pain currently is 10 out of 10 on a pain scale. Quality of pain is described as sore Pain began 1 day ago. Is continuous, Aggravated by eating, drinking. Neuro: Level of Consciousness is awake, alert, obeys commands, Oriented to person, place, time, situation. Cardiovascular: Heart tones S1 S2 present Rhythm is regular. Respiratory: Airway is patent Respiratory effort is even, unlabored, Respiratory pattern is regular, symmetrical, Breath sounds are clear bilaterally. GI: No signs and/or symptoms were reported involving the gastrointestinal system. : No signs and/or symptoms were reported regarding the genitourinary system. EENT: Throat is reddened has enlarged tonsils on right with gag reflex present. Derm: Skin is pink, warm \\T\\ dry. 17:20 Reassessment: Patient and/or family updated on plan of care and expected duration. Pain aa5 level reassessed. Patient is alert, oriented x 3, equal unlabored respirations, skin warm/dry/pink. 17:43 Reassessment: Patient and/or family updated on plan of care and expected duration. Pain aa5 level reassessed. Patient is alert, oriented x 3, equal unlabored respirations, skin warm/dry/pink. 18:12 Reassessment: Patient appears in no apparent distress at this time. Patient and/or ss family updated on plan of care and expected duration. Pain level reassessed. Patient is alert, oriented x 3, equal unlabored respirations, skin warm/dry/pink. Vital Signs: 14:12 BP 116 / 83; Pulse 114; Resp 18 S; Temp 99.5(O); Pulse Ox 99% on R/A; Weight 72.12 kg aa5 (R); Height 5 ft. 3 in. (160.02 cm) (R); Pain 10/10; 18:12 Pulse 98; Resp 16; Temp 99.8(O); ss 14:12 Body Mass Index 28.17 (72.12 kg, 160.02 cm) aa5 Vitals: 17:22 Heart Tones 130bpm. aa5 ED Course: 13:35 Patient arrived in ED. rg4 14:08 Arm band placed on. aa5 14:11 Triage completed. aa5 15:45 Patient placed in an exam room, on a stretcher. aa5 15:45 Patient has correct armband on for positive identification. Bed in low position. Call aa5 light in reach. Side rails up X2. Adult w/ patient. 15:57 Pearl Lala RN is Primary Nurse. aa5 16:06 Facundo Pierce MD is Attending Physician. nik 16:07 Facundo Eid PA is PHCP. cp 17:01 Inserted saline lock: 22 gauge in right antecubital area, using aseptic technique. ss Blood collected. 17:03 Rekha Garcia MD is Referral Physician. [facility] 18:25 No provider procedures requiring assistance completed. Patient did not have IV access ss during this emergency room visit. Administered Medications: 17:10 Drug: NS 0.9% 1000 ml Route: IV; Rate: 1 bolus; Site: right antecubital; aa5 18:26 Follow up: IV Status: Completed infusion ss 17:10 Drug: Decadron - Dexamethasone 10 mg Route: IVP; Site: right antecubital; aa5 17:20 Follow up: Response: No adverse reaction aa5 17:20 Drug: Bicillin L-A 1.2 million units Route: IM; Site: right gluteus; aa5 17:43 Follow up: Response: No adverse reaction aa5 17:43 Drug: Clindamycin 900 mg Route: IVPB; Infused Over: 30 mins; Site: right antecubital; aa5 18:11 Follow up: IV Status: Completed infusion ss Outcome: 17:03 Discharge ordered by . [facility] 18:25 Discharged to home ambulatory, with significant other. 18:25 Condition: good 18:25 Discharge instructions given to patient, significant other, Instructed on discharge instructions, follow up and referral plans. medication usage, Demonstrated understanding of instructions, follow-up care, medications, Prescriptions given X 1. 18:26 Patient left the ED. Addendum: 02/17/2018 09:40 Addendum: Culture Results: Positive urine culture. Bacteria is resistant to, has s s intermediate sensitivity, or is not tested against prescribed antibiotics. Report given to MANDA for further evaluation and then to veterinary virus serum inspector for follow up with patient. Phone call Attempt #1 no answer, left Certified letter sent to listed address for patient. Signatures: Facundo Pierce MD MD cha Calderon, Audri, RN RN aa5 Noelle Germain RN RN Facundo Greer PA PA cp Garcia, Rubi rg4
--- NOTE | 2018-02-14 17:04 | EDPHYS ---
Physician Documentation [facility] Name: Marii Capps Age: 27 yrs Sex: Female : 1990 Arrival Date: 02/14/2018 Time: 13:35 Bed 9 Private MD: ED Physician Facundo Pierce HPI: 02/14 16:21 This 27 yrs old Female presents to ER via Ambulatory with complaints of Throat nik Pain. 16:21 The patient presents with sore throat. The patient describes throat pain as raw, nik scratchy. Onset: The symptoms/episode began/occurred 1 day(s) ago. Severity of symptoms: At their worst the symptoms were mild, moderate, in the emergency department the symptoms are unchanged. Modifying factors: The symptoms are alleviated by nothing, the symptoms are aggravated by swallowing. Associated signs and symptoms: Pertinent positives: fever, Sore throat. The patient has experienced a previous episode. 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 - Social history:: Smoking status: Patient/guardian denies using tobacco. - Ebola Screening: : No symptoms or risks identified at this time. - Family history:: not pertinent. ROS: 16:21 Constitutional: Negative for fever, chills, and weight loss, Eyes: Negative for injury, nik pain, redness, and discharge, Neck: Negative for injury, pain, and swelling, Cardiovascular: Negative for chest pain, palpitations, and edema, Respiratory: Negative for shortness of breath, cough, wheezing, and pleuritic chest pain, Abdomen/GI: Negative for abdominal pain, nausea, vomiting, diarrhea, and constipation, Back: Negative for injury and pain, : Negative for injury, bleeding, discharge, and swelling, MS/Extremity: Negative for injury and deformity, Skin: Negative for injury, rash, and discoloration, Neuro: Negative for headache, weakness, numbness, tingling, and seizure. 16:21 ENT: Positive for sore throat, right greater than left. Exam: 16:21 Constitutional: This is a well developed, well nourished patient who is awake, alert, nik and in no acute distress. Head/Face: Normocephalic, atraumatic. Eyes: Pupils equal round and reactive to light, extra-ocular motions intact. Lids and lashes normal. Conjunctiva and sclera are non-icteric and not injected. Cornea within normal limits. Periorbital areas with no swelling, redness, or edema. Neck: Trachea midline, no thyromegaly or masses palpated, and no cervical lymphadenopathy. Supple, full range of motion without nuchal rigidity, or vertebral point tenderness. No Meningismus. Chest/axilla: Normal chest wall appearance and motion. Nontender with no deformity. No lesions are appreciated. Cardiovascular: Regular rate and rhythm with a normal S1 and S2. No gallops, murmurs, or rubs. Normal PMI, no JVD. No pulse deficits. Respiratory: Lungs have equal breath sounds bilaterally, clear to auscultation and percussion. No rales, rhonchi or wheezes noted. No increased work of breathing, no retractions or nasal flaring. Abdomen/GI: Soft, non-tender, with normal bowel sounds. No distension or tympany. No guarding or rebound. No evidence of tenderness throughout. Back: No spinal tenderness. No costovertebral tenderness. Full range of motion. Female : Normal external genitalia. Skin: Warm, dry with normal turgor. Normal color with no rashes, no lesions, and no evidence of cellulitis. MS/ Extremity: Pulses equal, no cyanosis. Neurovascular intact. Full, normal range of motion. Neuro: Awake and alert, GCS 15, oriented to person, place, time, and situation. Cranial nerves II-XII grossly intact. Motor strength 5/5 in all extremities. Sensory grossly intact. Cerebellar exam normal. Normal gait. Psych: Awake, alert, with orientation to person, place and time. Behavior, mood, and affect are within normal limits. 16:21 ENT: Posterior pharynx: Airway: normal, no evidence of obstruction, Tonsils: enlarged on the right, with exudate, Uvula: normal, swelling, that is mild, that is moderate, erythema, that is moderate, exudate, that is mild, peritonsillar mass, is not appreciated, pooling of secretions, is not appreciated. Vital Signs: 14:12 BP 116 / 83; Pulse 114; Resp 18 S; Temp 99.5(O); Pulse Ox 99% on R/A; Weight 72.12 kg aa5 (R); Height 5 ft. 3 in. (160.02 cm) (R); Pain 10/10; 18:12 Pulse 98; Resp 16; Temp 99.8(O); ss 14:12 Body Mass Index 28.17 (72.12 kg, 160.02 cm) aa5 MDM: 16:06 Patient medically screened. [facility] 16:21 Data reviewed: vital signs, nurses notes, lab test result(s). [facility] 02/14 16:21 Order name: CBC with Diff; Complete Time: 17:47 [facility] 02/14 16:21 Order name: Comprehensive Metabolic Panel; Complete Time: 17:47 [facility] 02/14 16:21 Order name: Urine Culture [facility] 02/14 17:08 Order name: Urine Dipstick--Ancillary (enter results) 02/14 17:08 Order name: Urine --Ancillary (enter results) 02/14 17:14 Order name: CBC Smear Scan; Complete Time: 17:47 [facility] 02/14 16:21 Order name: FHT's; Complete Time: 17:27 [facility] 02/14 16:21 Order name: Urine Dipstick-Ancillary (obtain specimen); Complete Time: 17:01 [facility] Administered Medications: 17:10 Drug: NS 0.9% 1000 ml Route: IV; Rate: 1 bolus; Site: right antecubital; aa5 18:26 Follow up: IV Status: Completed infusion 17:10 Drug: Decadron - Dexamethasone 10 mg Route: IVP; Site: right antecubital; aa5 17:20 Follow up: Response: No adverse reaction aa5 17:20 Drug: Bicillin L-A 1.2 million units Route: IM; Site: right gluteus; aa5 17:43 Follow up: Response: No adverse reaction aa5 17:43 Drug: Clindamycin 900 mg Route: IVPB; Infused Over: 30 mins; Site: right antecubital; aa5 18:11 Follow up: IV Status: Completed infusion ss Disposition: 02/14/18 17:03 Discharged to Home. Impression: Acute tonsillitis, Fever, unspecified, related conditions, unspecified, first trimester. - Condition is Stable. - Discharge Instructions: Fever, Adult, Tonsillitis, Tonsillitis, [id number], First Trimester of , Zygv-lh-Ryij, First Trimester of , Fever, Adult, Pssm-rw-Dsmk. - Prescriptions for Clindamycin HCl 300 mg Oral Capsule - take 1 capsule by ORAL route every 6 hours for 10 days; 28 capsule. - Medication Reconciliation Form, Thank You Letter, Antibiotic Education, Prescription Opioid Use form. - Follow up: Private Physician; When: 2 - 3 days; Reason: Recheck today's complaints, Continuance of care, Re-evaluation by your physician. Follow up: Rekha Garcia; When: 2 - 3 days; Reason: Recheck today's complaints, Continuance of care, Re-evaluation by your physician. - Problem is new. - Symptoms have improved. Signatures: Dispatcher [employer] EDMS Facundo Pierce MD MD cha Calderon, Audri, RN RN aa5 Noelle Germain RN RN ss Corrections: (The following items were deleted from the chart) 18:26 17:03 02/14/2018 17:03 Discharged to Home. Impression: Acute tonsillitis; Fever, ss unspecified; related conditions, unspecified, first trimester. Condition is Stable. Discharge Instructions: Fever, Adult, Tonsillitis, Tonsillitis, Kjjw-hl-Dwdm, First Trimester of , Bjlx-az-Emmu, First Trimester of , Fever, Adult, Kdol-wu-Erdo. Prescriptions for Clindamycin HCl 300 mg Oral Capsule - take 1 capsule by ORAL route every 6 hours for 10 days; 28 capsule. and Forms are Medication Reconciliation Form, Thank You Letter, Antibiotic Education, Prescription Opioid Use. Follow up: Private Physician; When: 2 - 3 days; Reason: Recheck today's complaints, Continuance of care, Re-evaluation by your physician. Follow up: Rekha Garcia; When: 2 - 3 days; Reason: Recheck today's complaints, Continuance of care, Re-evaluation by your physician. Problem is new. Symptoms have improved. nik
[2018-02-14 17:09] LABS: Absolute Monocytes 0.7 K/uL (0.1-1.3); Absolute Neutrophil 13.1 K/uL (1.8-8.0); Basophils % 0.3 % (0-1.3); Hematocrit 35.8 % (36.0-45.0); MCH 29.5 pg (27.0-35.0); MCV 85.4 fL (80-100); MPV 8.5 fL (7.6-11.3); Monocytes % 4.5 % (3.3-12.3); RBC Red Blood Cell Count 4.19 M/uL (3.86-4.86)
[2018-02-14] MEDS ORDERED: PEN G BENZ LA 1.2MU/2ML SYRINGE IM ONE (17:18)
[2018-02-14] MEDS ORDERED: DEXAMETHASONE 4 MG/ML VIAL ONE (17:18)
[2018-02-14] MEDS ORDERED: NA CHLORIDE 0.9% 1,000 ML ONE (17:18)
[2018-02-14] MEDS ORDERED: CLINDAMYCIN 900MG/D5W 900 MG/50 ML IVPB IV ONE (17:18)
[2018-02-14 17:27] LABS: ALT/SGPT 13 U/L (12-78); AST/SGOT 12 U/L (15-37); Albumin 3.3 g/dL (3.4-5.0); Alkaline Phosphatase 75 U/L (45-117); BUN Blood Urea Nitrogen 3 mg/dL (7-18); Bicarbonate 23 mmol/L (21-32); Bilirubin Total 0.4 mg/dL (0.2-1.0); Glucose Level 88 mg/dL (74-106); Potassium 3.7 mmol/L (3.5-5.1); Protein, Total 7.3 g/dL (6.4-8.2); Sodium Level 136 mmol/L (136-145)
[2018-02-14 17:29] LABS: Blood Morphology Comment NOT SEEN (NOT SEEN); Platelet Estimate ADEQ; Urine White Blood Cell Casts OK
[2018-02-14 17:32] LABS: Urine Blood NEGATIVE (NEG); Urine Glucose NEGATIVE (NEG); Urine Protein NEGATIVE (NEG); Urine Specific Gravity 1.025 (1.005-1.030)
[2018-02-14 19:33] VITALS: BP 116/83; O2SAT 99
[2018-02-14 19:34] VITALS: TEMP 99.8
== END 2018-02-14 18:26 | disposition home or self-care (01) ==
LOC: ER 13:33
DX: J03.90 Acute tonsillitis, unspecified (principal); Z3A.00 Weeks of gestation of pregnancy not specified
CPT/HCPCS: 36415; 80053; 81003; 81025; 85025; 87077; 87086; 87088; 87186; 96361; 96365; 96372; 96375; 99284; J0561; J7030

== ENCOUNTER 2018-12-01 05:40 | Emergency (ER) | payer OTHER ==
--- OUTSIDE RECORDS SUMMARY | 2018-12-01 05:41 | XMS REPORT | Continuity of Care Document ---
:1990 Author Organization [facility] Information [employer] Care Team Providers Name Role Phone 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 (Same as: [place] 325/10) ropivacaine Dosing: Per No Longer Nerve Block Active 2016 [facility] Dosing Order, Route: NERVE BLOCK, Start date: 08/16/16 9:26:00 CDT 400 mL, Drug Form: INJ, Dosing Weight 72.273, kg, Duration: 30 day, Stop date: 09/15/16 9:25:00 CDTNotes: Final concentration: Ropivacaine 0.2% 400 ml Phenergan 12.5 mg, Route: Inactive IVPB, Q4H, 2017 [facility] Dosing Weight 72.273, kg, PRN Nausea & Vomiting, Start date: 08/16/16 9:14:00 CDT, Duration: 30 day, Stop date: 09/15/16 9:13:00 CDT Fentanyl 25 microgram, No Longer 0.5 mL, Route: Active 2016 [facility] IVP, Drug form: INJ, Q5Min, Dosing Weight 72.273, kg, PRN Pain Score 4-6, Priority: Routine, Start date: 08/16/16 9:04:00 CDT, Duration: 4 doses or times, Stop date: Limited # of timesNotes: (Same as: Sublimaze) Preservative free. Oxycodone 5 mg, 1 tab, No Longer Route: PO, Drug Active 2016 [facility] form: TAB, Q4H, Dosing Weight 72.273, kg, PRN Pain Score 4-6, Start date: 08/16/16 9:04:00 CDT, Duration: 30 day, Stop date: 09/15/16 9:03:00 CDTNotes: (Same as: Roxicodone) Hydromorphone 0.5 mg, 0.5 mL, No Longer Route: IVP, Drug Active 2016 [facility] form: INJ, Q5Min, Dosing Weight 72.273, kg, PRN Pain Score 7-10, Start date: 08/16/16 9:04:00 CDT, Duration: 4 doses or times, Stop date: Limited # of timesNotes: Same as: Dilaudid Hydralazine 10 mg, 0.5 mL, No Longer Route: IVP, Drug Active 2016 [facility] form: INJ, Q20Min, Dosing Weight 72.273, kg, PRN Elevated BP, Start date: 08/16/16 9:04:00 CDT, Duration: 2 doses or times, Stop date: Limited # of timesNotes: (Same as: Apresoline) Push over 5 minutes Acetaminophen 1,000 mg, 2 tab, No Longer Route: PO, Drug Active 2016 [facility] form: TAB, ONCE, Dosing Weight 72.273, kg, PRN Pain Score 1-3, Start date: 08/16/16 9:04:00 CDT, Duration: 1 doses or times, Stop date: Limited # of timesNotes: Max acetaminophen 4000 mg/day (4 gm/day). (Same as: Tylenol Extra Strength) Labetalol 10 mg, 2 mL, No Longer Route: IVP, Drug Active 2016 [facility] form: INJ, Q5Min, Dosing Weight 72.273, kg, PRN Elevated BP, Start date: 08/16/16 9:04:00 CDT, Duration: 5 doses or times, Stop date: Limited # of timesNotes: (Same as: Normodyne, Trandate) Push over 2 minutes Give bolus over 2-3 minutes. Ketorolac 30 mg, 1 mL, Inactive Route: IVP, Drug 2016 [facility] form: INJ, ONCE, Dosing Weight 72.273, kg, [...] No Longer Route: IVP, Drug Active 2016 [facility] form: INJ, ONCE, Dosing Weight 72.273, kg, PRN Nausea & Vomiting, Start date: 08/16/16 9:04:00 CDTNotes: (Same as: Zofran) MEDICATION WASTE Product Size: 4 mg Product Wasted: ___ mg Flumazenil 0.2 mg, 2 mL, No Longer Route: IVP, Drug Active 2016 [facility] form: INJ, PRN, Dosing Weight 72.273, kg, PRN Benzodiazepine Reversal, Initial dose, Start date: 08/16/16 9:04:00 CDT, Duration: 30 day, Stop date: 09/15/16 9:03:00 CDTNotes: (Same as: Romazicon) Naloxone 0.4 mg, 1 mL, No Longer Route: IVP, Drug Active 2016 [facility] form: INJ, Q2MIN, Dosing Weight 72.273, kg, PRN Narcotic Reversal, Start date: 08/16/16 9:04:00 CDT, Duration: 8 doses or times, Stop date: Limited # of timesNotes: Same as Narcan Diphenhydramine 12.5 mg, 0.25 No Longer 05/25/ MH mL, Route: IVP, Active 2016 [facility] Drug form: INJ, Q6H, Dosing Weight 72.273, kg, PRN Itching, Start date: 08/16/16 9:04:00 CDT, Duration: 30 day, Stop date: 09/15/16 9:03:00 CDTNotes: (Same as: Benadryl) Albuterol 0.83 2.49 mg, 3 mL, No Longer 05/25/ MH MG/ML Inhalant Route: NEB, Drug Active 2016 [facility] Solution form: SOLN, Q20Min, Dosing Weight 72.273, kg, PRN Wheezing, Priority: STAT, Start date: 08/16/16 9:04:00 CDT, Duration: 30 day, Stop date: 09/15/16 9:03:00 CDTNotes: SEE RT DOCUMENTATION (Same as: Proventil) fentaNYL (ANES) Route: IV, Drug Inactive 08/16/ MH form: INJ, ONCE, 2016 [facility] Stop date: 08/16/16 8:55:00 CDT ondansetron Route: IV, Drug Inactive 05/25/ MH (ANES) form: INJ, ONCE, 2016 [facility] Stop date: 08/16/16 8:55:00 CDT Dilaudid (ANES) Route: IV, Drug Inactive 25/ MH form: INJ, ONCE, 2016 [facility] Stop date: 08/16/16 8:55:00 CDT ceFAZolin (ANES) Route: IV, Drug Inactive 25/ MH form: INJ, ONCE, 2016 [facility] Stop date: 08/16/16 8:34:00 CDT dexamethasone Route: IV, Drug Inactive 05/25/ MH (ANES) form: INJ, ONCE, 2016 [facility] Stop date: 08/16/16 8:19:00 CDT propofol (ANES) Route: IV, Drug Inactive 05/25/ MH form: INJ, ONCE, 2016 [facility] Stop date: 08/16/16 8:14:00 CDT midazolam (ANES) Route: IV, Drug Inactive 05/25/ MH form: SOLN, 2016 [facility] ONCE, Stop date: 08/16/16 8:14:00 CDT ceFAZolin + 2 gm, Route: No Longer sodium chloride IVPB, ONCALL, Active 2016 [facility] 0.9% INJ 100 mL Start date: 08/16/16 7:00:00 CDT, Duration: 1 day, Stop date: 08/17/16 6:59:00 CDT, ABX Indication: Surgical ProphylaxisNotes : (Same As: Ancef, Kefzol) MEDICATION WASTE Product Size: 1000 mg Product Wasted: ___ mg LR 1000 mL INJ Route: IV, Total Inactive (ANES) Volume: 1,000, 2016 [facility] Start date: 08/16/16 6:45:00 CDT, Stop date: [...] oral delayed Daily, # 30 cap, 2016 [facility] release capsule 0 Refill(s) Allergies, Adverse Reactions, Alerts No Known Medication Allergies Immunizations No Data Provided for This Section Results Order Results Value Reference Date Interpretation Comments Source Name Range URINE U Preg Negative Negative CHEM (08/16/16 5:48 AM) 017 [facility] Pathology Reports No Data Provided for This Section Diagnostic Reports Report Value Date Source Calcaneus series DX Patient Name: HONEY BANG 08/16/2016 [facility] : 1990; Age: 26 years y/o Female MR: [id number] Study: Calcaneus series DX 08/16/2016 8:54 AM [...] calcaneal fragment at the osteotomy site. SL: [id number] Ankle wo contrast MRI EXAM: MR LEFT ANKLE WITHOUT CONTRAST 04/27/2016 ABBY Lopez DATE: 04/27/2016 0926 hours INDICATION: M25.572 Pain in left ankle and [...] and scarred anterior talofibular ligament. Foot 3 views Bilateral EXAM: Foot 3 views Bilateral 09/23/2012 [facility] DATE: 09/23/2012 INDICATION: 719.47 foot pain COMPARISON: None. TECHNIQUE: AP, lateral and oblique views of both feet FINDINGS: No acute fracture or dislocation. There is pes cavus deformity bilaterally. Soft tissues are within normal limits. IMPRESSION: Bilateral pes cavus deformity. Consultation Notes No Data Provided for This Section Discharge Summaries No Data Provided for This Section History and Physicals No Data Provided for This Section Vital Signs Vital Sign Value Date Comments Source Systolic (mm Hg) 116 08/16/2016 [facility] Diastolic (mm Hg) 72 08/16/2016 [facility] Respitory Rate 16 08/16/2016 [facility] Respitory Rate 12 08/16/2016 [facility] Systolic (mm Hg) 122 08/16/2016 [facility] Diastolic (mm Hg) 77 08/16/2016 [facility] Systolic (mm Hg) 122 08/16/2016 [facility] Diastolic (mm Hg) 80 08/16/2016 [facility] Respitory Rate 10 08/16/2016 [facility] Height 160.02 cm 08/15/2016 [facility] BMI Calculated 28.22 08/15/2016 [facility] Weight 72.273 08/15/2016 [facility] Weight 72.727 10/03/2011 [facility] Height 157.48 cm 10/03/2011 [facility] Encounters Location Location Encounter Encounter Reason Attending ADM DC Status Source Details Type Number For Provider Date Date Visit [facility] Outpatient [id number] PADMINI OROZCO 10/02 Active [facility] 1 [facility] Outpt Diag [id number] Francy 04/27 04/28 [facility] [address] [facility] OP Therapy [id number] Francy 05/04 06/03 [facility] Day Surgery [id number] Lillie 08/16 08/16 [facility] 2 [place] /2016 [facility] Procedures Procedure Code Date Perfomer Comments Source Ankle joint [id number] biopsy of [facility] operations<sup>1 ankle nerve </sup> section [id number] [facility] Assessment and Plan No Data Provided for This Section Plan of Care No Data Provided for This Section Social History Social History Date Source Social History TypeResponse 08/16/2016 [facility] Smoking Status Never smoker; Exposure to Tobacco Smoke None; Cigarette Smoking Last 365 Days No; Reg Smoking Cessation Counseling No No data available for this 06/03/2016 [facility] [place] section [place] No data available for this 04/28/2016 CARRIE Lopez section Family History No Data Provided for This Section Advance Directives No Data Provided for This Section Functional Status No Data Provided for This Section
--- OUTSIDE RECORDS SUMMARY | 2018-12-01 05:42 | XMS REPORT ---
:1990 [facility] [address] [place] [address] Dr. Ravi [address] [place] [id number] Care Team Providers Name Role Phone Unavailable Unavailable Unavailable Problems This patient has no known problems. Allergies, Adverse Reactions, Alerts This patient has no known allergies or adverse reactions. Medications This patient has no known medications.
[2018-12-01] MEDS ORDERED: LIDOCAINE 1% MPF 5 ML VIAL ONE (05:56)
[2018-12-01] MEDS ORDERED: TETANUS & DIPHTHERIA TOX,ADULT 0.5 ML VIAL ONE (06:05)
--- NOTE | 2018-12-01 08:23 | ER ---
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 Transition of care: patient was not received from another setting of care. Onset of symptoms was December 01, 2018. Risk Assessment: Do you want to hurt yourself or someone else? Patient reports no desire to harm self or others. Initial Sepsis Screen: Does the patient meet any 2 criteria? No. Patient's initial sepsis screen is negative. Does the patient have a suspected source of infection? No. Patient's initial sepsis screen is negative. Care prior to arrival: pt reports holding pressure. 05:50 Method Of Arrival: Ambulatory ea 05:50 Acuity: MADELEINE 3 ea Triage Assessment: 05:57 General: Appears uncomfortable, Behavior is calm, cooperative, appropriate for age. ea Pain: Complains of pain in palmar aspect of distal phalanx of left little finger, palmar aspect of middle phalanx of left little finger and palmar aspect of proximal phalanx of left little finger. Neuro: Level of Consciousness is awake, alert, obeys commands, Oriented to person, place, time, situation. Cardiovascular: Patient's skin is warm and dry. Respiratory: Airway is patent Respiratory effort is even, unlabored, Respiratory pattern is regular, symmetrical. Injury Description: Laceration sustained to palmar aspect of distal phalanx of left little finger is jagged, 0.5 to 2.5 cm long, was sustained less than 30 minutes ago. a small amount of bleeding noted at this time. Historical: - Home Meds: 05:57 None [Active]; ea - PMHx: 05:57 HYPOGLYCEMIA; ea - PSHx: 05:57 ; ea - Immunization history:: Adult Immunizations up to date. - Social history:: Smoking status: Patient/guardian denies using tobacco. - Ebola Screening: : No symptoms or risks identified at this time. Screenin:51 Abuse screen: Denies threats or abuse. Denies injuries from another. Nutritional rr5 screening: No deficits noted. Tuberculosis screening: No symptoms or risk factors identified. Fall Risk None identified. Total Sharma Fall Scale indicates No Risk (0-24 pts). Assessment: 05:57 Reassessment: see triage assessment. ea 06:42 Reassessment: Patient and/or family updated on plan of care and expected duration. Pain ea level reassessed. Patient is alert, oriented x 3, equal unlabored respirations, skin warm/dry/pink. Vital Signs: 05:56 BP 129 / 108; Pulse 113; Resp 20; Temp 97.8; Pulse Ox 100% ; Pain 9/10; ea 07:20 BP 110 / 73; Pulse 81; Resp 16; Temp 97.9(TE); Pulse Ox 99% on R/A; mh5 ED Course: 05:41 Patient arrived in ED. ds1 05:42 Blaze Zhou, RN is Primary Nurse. rr5 05:51 Patient has correct armband on for positive identification. Bed in low position. Call rr5 light in reach. 05:54 Triage completed. ea 05:55 Arash Palma MD is Attending Physician. gs 05:57 Arm band placed on right wrist. Patient placed in an exam room, on a stretcher, on ea pulse oximetry. 06:18 Jeremiah Monet PA is PHCP. [facility] 06:18 Arash Palma MD is Attending Physician. jmm 06:33 XRAY Hand LEFT 2 View In Process Unspecified. EDMS 08:20 Sonu Benz MD is Referral Physician. [facility] 08:41 No provider procedures requiring assistance completed. Patient did not have IV access la1 during this emergency room visit. Administered Medications: 05:57 CANCELLED (Duplicate Order): Lidocaine (1 %) 5 mg Infiltration once gs 06:15 Drug: Tetanus-Diphtheria Toxoid Adult 0.5 ml {Chancery Clerk: [facility]. Exp: ea 06/14/2020. Lot #: [id number]. } Route: IM; Site: right deltoid; 08:28 Follow up: Response: No adverse reaction la1 06:16 Drug: Lidocaine (1 %) 1 amp {Note: administered by provider.} Volume: 5 ml; Route: ea Infiltration; Outcome: 08:22 Discharge ordered by MD. gordon 08:41 Discharged to home ambulatory. laWoody 08:41 Condition: stable 08:41 Discharge instructions given to patient, Instructed on discharge instructions, follow up and referral plans. medication usage, wound care, Demonstrated understanding of instructions, follow-up care, medications, wound care, Prescriptions given X 1. 08:42 Patient left the ED. la1 Signatures: Dispatcher [employer] EDMS Jeremiah Monet PA PA jmm Sanford, Demi ds1 Orville Mata, RN RN la1 Itzel Lazcano5 Naina Peterson RN Arash Carreon ea, MD MD gs Roque, Raymond, RN RN rr5
--- NOTE | 2018-12-01 08:23 | EDPHYS ---
Physician Documentation [facility] Name: Marii Capps Age: 28 yrs Sex: Female : 1990 Arrival Date: 12/01/2018 Time: 05:41 Bed 15 Private MD: ED Physician Arash Palma HPI: 12/01 06:41 This 28 yrs old Female presents to ER via Ambulatory with complaints of Finger jmm Laceration. 06:41 The patient or guardian reports injury, a laceration. The complaints affect the palmar jmm aspect of distal phalanx of left little finger. Onset: The symptoms/episode began/occurred acutely, just prior to arrival. Modifying factors: The symptoms are alleviated by nothing, the symptoms are aggravated by nothing. Patient states cutting her pinky on a fruit receiver while washing it. Denies other injury. . Historical: - Home Meds: 05:57 None [Active]; ea - PMHx: 05:57 HYPOGLYCEMIA; ea - PSHx: 05:57 ; ea - Immunization history:: Adult Immunizations up to date. - Social history:: Smoking status: Patient/guardian denies using tobacco. - Ebola Screening: : No symptoms or risks identified at this time. ROS: 06:41 Constitutional: Negative for fever, chills, and weight loss, Cardiovascular: Negative jmm for chest pain, palpitations, and edema, Respiratory: Negative for shortness of breath, cough, wheezing, and pleuritic chest pain, Abdomen/GI: Negative for abdominal pain, nausea, vomiting, diarrhea, and constipation. 06:41 MS/extremity: Positive for laceration. 06:41 Skin: Positive for laceration(s). 06:41 All other systems are negative. Exam: 06:41 Constitutional: This is a well developed, well nourished patient who is awake, alert, jmm and in no acute distress. Head/Face: atraumatic. Eyes: EOMI, no conjunctival erythema appreciated ENT: Moist Mucus Membranes Neck: Trachea midline, Supple Chest/axilla: Normal chest wall appearance and motion. Cardiovascular: Regular rate and rhythm. No edema appreciated Respiratory: Normal respirations, no respiratory distress appreciated Abdomen/GI: Non distended, soft Back: Normal ROM 06:41 Skin: injury, laceration(s), the wound is approximately 1 cm(s). 06:41 Neuro: Orientation: is normal, Mentation: is normal, Memory: is normal. 06:41 Psych: Behavior/mood is pleasant, cooperative. Vital Signs: 05:56 BP 129 / 108; Pulse 113; Resp 20; Temp 97.8; Pulse Ox 100% ; Pain 9/10; ea 07:20 BP 110 / 73; Pulse 81; Resp 16; Temp 97.9(TE); Pulse Ox 99% on R/A; mh5 Laceration: 08:17 Wound Repair of 1cm ( 0.4in ) subcutaneous laceration to left hand and palmar aspect of jmm distal phalanx of left little finger. Distal neuro/vascular/tendon intact. Anesthesia: Local anesthetic administered with 5 mls of 0.5% marcaine. Wound prep: Extensive cleansing with betadine by me, Copious irrigation. Skin closed with 4 4-0 Prolene using simple sutures and sterile technique. Patient tolerated well. MDM: 06:24 Patient medically screened. [facility] 08:19 Data reviewed: vital signs, nurses notes. Counseling: I had a detailed discussion with evan the patient and/or guardian regarding: the historical points, exam findings, and any diagnostic results supporting the discharge/admit diagnosis, radiology results, the need for outpatient follow up. ED course: Patient advised to follow up with hand surgery for reevaluation. patient advised of risk of infection along with strict return precautions. patient understood and agrees with the plan of care. . 12/01 05:56 Order name: XRAY Hand LEFT 2 View; Complete Time: 08:38 bonita 12/01 08:23 Order name: Wound Care: wet to dry; Complete Time: 08:41 [facility] Administered Medications: 05:57 CANCELLED (Duplicate Order): Lidocaine (1 %) 5 mg Infiltration once gs 06:15 Drug: Tetanus-Diphtheria Toxoid Adult 0.5 ml {Internal Grinder: [employer]. Exp: ea 06/14/2020. Lot #: [id number]. } Route: IM; Site: right deltoid; 08:28 Follow up: Response: No adverse reaction la1 06:16 Drug: Lidocaine (1 %) 1 amp {Note: administered by provider.} Volume: 5 ml; Route: ea Infiltration; Disposition: 12/01/18 08:22 Discharged to Home. Impression: Finger Laceration, Avulsion of the Left 5th Distal Phalanx, Distal Phalanx Fracture. - Condition is Stable. - Discharge Instructions: Traumatic Finger Amputation, Finger Fracture, Laceration Care, Adult. - Prescriptions for Cephalexin 500 mg Oral Capsule - take 1 capsule by ORAL route every 6 hours for 10 days; 40 capsule. - Medication Reconciliation Form, Thank You Letter, Antibiotic Education, Prescription Opioid Use form. - Work release form (12/01/18 08:43). la1 - Follow up: Sonu Benz MD; When: 2 - 3 days; Reason: Recheck today's complaints, Continuance of care, Re-evaluation by your physician. Signatures: Dispatcher [employer] [facility] Jeremiah Monet PA PA [facility] Orville Mata RN RN la1 Antunez, Elena, RN RN ea Starr, Gregory, MD MD gs Corrections: (The following items were deleted from the chart) 05:57 05:56 Lidocaine (1 %) 5 mg Infiltration once ordered. [facility] 06:13 05:56 Hand Right 3 View+RAD.RAD.BRZ ordered. [facility] 08:19 06:41 Patient states cutting her pinky on a fruit receiver while washing it. Denies other [facility] injury. . [facility] 08:42 08:22 12/01/2018 08:22 Discharged to Home. Impression: Finger Laceration; Avulsion of la1 the Left 5th Distal Phalanx; Distal Phalanx Fracture. Condition is Stable. Forms are Medication Reconciliation Form, Thank You Letter, Antibiotic Education, Prescription Opioid Use. Follow up: Sonu Benz; When: 2 - 3 days; Reason: Recheck today's complaints, Continuance of care, Re-evaluation by your physician. [facility]
--- NOTE | 2018-12-01 08:31 | RAD REPORT ---
EXAM DESCRIPTION: RAD - Hand Left 2 View - 12/01/2018 6:31 am CLINICAL HISTORY: laceration COMPARISON: No comparisons FINDINGS: A tuft fracture involves the distal fifth digit with adjacent soft tissue laceration. No f oreign body.
[2018-12-01 15:13] VITALS: BP 110/73; TEMP 97.9; O2SAT 99
== END 2018-12-01 08:42 | disposition home or self-care (01) ==
LOC: ER 05:40
PROC: 0JQJ0ZZ Repair Right Hand Subcutaneous Tissue and Fascia, Open Approach (ICD-10-PCS; principal; 2018-12-01)
DX: S61.217A Laceration without foreign body of left little finger without damage to nail, initial encounter (principal); S62.639A Displaced fracture of distal phalanx of unspecified finger, initial encounter for closed fracture; W45.8XXA Other foreign body or object entering through skin, initial encounter; Y93.G1 Activity, food preparation and clean up; Y92.9 Unspecified place or not applicable; Z23 Encounter for immunization
CPT/HCPCS: 90471; 90714; 99284

== ENCOUNTER 2018-12-04 09:07 | Day surgery (SDC) | payer OTHER ==
[2018-12-04] MEDS ORDERED: MIDAZOLAM HCL 2 MG/2 ML INJ ONE (09:12)
[2018-12-04] MEDS ORDERED: dexAMETHasone 10 MG/ML VIAL ONE (09:12)
[2018-12-04] MEDS ORDERED: FENTANYL CITR 100 MCG/2 ML ONE (09:12)
[2018-12-04] MEDS ORDERED: PROPOFOL 200 MG/20 ML VIAL IV ONE (09:12)
[2018-12-04] MEDS ORDERED: LIDOCAINE 2% MPF 5 ML VIAL ONE (09:13)
[2018-12-04] MEDS ORDERED: ONDANSETRON 4 MG/2 ML VIAL ONE (09:13)
[2018-12-04] MEDS ORDERED: Ringers Lactate 1,000 ML IV ONE (09:21)
[2018-12-04] MEDS ORDERED: CEFAZOLIN/SWI 1gm 1 GM/10 ML SYR ONE (09:21)
--- OUTSIDE RECORDS SUMMARY | 2018-12-04 09:24 | XMS REPORT | Continuity of Care Document ---
:1990 Author Organization [facility] Information [place] Care Team Providers Name Role Phone [facility] Information [employer] Unavailable Unavailable Problems Problem Status Onset Classification Date Comments Source Date Reported UNK Active 08/15/19 [place] [address] [place] M25.572 - PAIN Active 04/24/19 [facility] IN LEFT ANKLE [address] [place] [address] AND JOINTS PERIPHERAL Active 09/28/[address] Mixed anxiety Active Problem 08/19/2016 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 (Same as: [place] 325/10) ropivacaine Dosing: Per No Longer Nerve Block Active 2016 [place] Dosing Order, Route: NERVE BLOCK, Start date: 08/16/16 9:26:00 CDT 400 mL, Drug Form: INJ, Dosing Weight 72.273, kg, Duration: 30 day, Stop date: 09/15/16 9:25:00 CDTNotes: Final concentration: Ropivacaine 0.2% 400 ml Phenergan 12.5 mg, Route: Inactive IVPB, Q4H, 2017 [place] Dosing Weight 72.273, kg, PRN Nausea & Vomiting, Start date: 08/16/16 9:14:00 CDT, Duration: 30 day, Stop date: 09/15/16 9:13:00 CDT Fentanyl 25 microgram, No Longer 0.5 mL, Route: Active 2016 [place] IVP, Drug form: INJ, Q5Min, Dosing Weight 72.273, kg, PRN Pain Score 4-6, Priority: Routine, Start date: 08/16/16 9:04:00 CDT, Duration: 4 doses or times, Stop date: Limited # of timesNotes: (Same as: Sublimaze) Preservative free. Oxycodone 5 mg, 1 tab, No Longer Route: PO, Drug Active 2016 [place] form: TAB, Q4H, Dosing Weight 72.273, kg, PRN Pain Score 4-6, Start date: 08/16/16 9:04:00 CDT, Duration: 30 day, Stop date: 09/15/16 9:03:00 CDTNotes: (Same as: Roxicodone) Hydromorphone 0.5 mg, 0.5 mL, No Longer Route: IVP, Drug Active 2016 [place] form: INJ, Q5Min, Dosing Weight 72.273, kg, PRN Pain Score 7-10, Start date: 08/16/16 9:04:00 CDT, Duration: 4 doses or times, Stop date: Limited # of timesNotes: Same as: Dilaudid Hydralazine 10 mg, 0.5 mL, No Longer Route: IVP, Drug Active 2016 [place] form: INJ, Q20Min, Dosing Weight 72.273, kg, PRN Elevated BP, Start date: 08/16/16 9:04:00 CDT, Duration: 2 doses or times, Stop date: Limited # of timesNotes: (Same as: Apresoline) Push over 5 minutes Acetaminophen 1,000 mg, 2 tab, No Longer Route: PO, Drug Active 2016 [place] form: TAB, ONCE, Dosing Weight 72.273, kg, PRN Pain Score 1-3, Start date: 08/16/16 9:04:00 CDT, Duration: 1 doses or times, Stop date: Limited # of timesNotes: Max acetaminophen 4000 mg/day (4 gm/day). (Same as: Tylenol Extra Strength) Labetalol 10 mg, 2 mL, No Longer Route: IVP, Drug Active 2016 [place] form: INJ, Q5Min, Dosing Weight 72.273, kg, PRN Elevated BP, Start date: 08/16/16 9:04:00 CDT, Duration: 5 doses or times, Stop date: Limited # of timesNotes: (Same as: Normodyne, Trandate) Push over 2 minutes Give bolus over 2-3 minutes. Ketorolac 30 mg, 1 mL, Inactive Route: IVP, Drug 2016 [place] form: INJ, ONCE, Dosing Weight 72.273, kg, [...] No Longer Route: IVP, Drug Active 2016 [place] form: INJ, ONCE, Dosing Weight 72.273, kg, PRN Nausea & Vomiting, Start date: 08/16/16 9:04:00 CDTNotes: (Same as: Zofran) MEDICATION WASTE Product Size: 4 mg Product Wasted: ___ mg Flumazenil 0.2 mg, 2 mL, No Longer Route: IVP, Drug Active 2016 [place] form: INJ, PRN, Dosing Weight 72.273, kg, PRN Benzodiazepine Reversal, Initial dose, Start date: 08/16/16 9:04:00 CDT, Duration: 30 day, Stop date: 09/15/16 9:03:00 CDTNotes: (Same as: Romazicon) Naloxone 0.4 mg, 1 mL, No Longer Route: IVP, Drug Active 2016 [place] form: INJ, Q2MIN, Dosing Weight 72.273, kg, PRN Narcotic Reversal, Start date: 08/16/16 9:04:00 CDT, Duration: 8 doses or times, Stop date: Limited # of timesNotes: Same as Narcan Diphenhydramine 12.5 mg, 0.25 No Longer 05/25/ MH mL, Route: IVP, Active 2016 [place] Drug form: INJ, Q6H, Dosing Weight 72.273, kg, PRN Itching, Start date: 08/16/16 9:04:00 CDT, Duration: 30 day, Stop date: 09/15/16 9:03:00 CDTNotes: (Same as: Benadryl) Albuterol 0.83 2.49 mg, 3 mL, No Longer 05/25/ MH MG/ML Inhalant Route: NEB, Drug Active 2016 [place] Solution form: SOLN, Q20Min, Dosing Weight 72.273, kg, PRN Wheezing, Priority: STAT, Start date: 08/16/16 9:04:00 CDT, Duration: 30 day, Stop date: 09/15/16 9:03:00 CDTNotes: SEE RT DOCUMENTATION (Same as: Proventil) fentaNYL (ANES) Route: IV, Drug Inactive 08/16/ MH form: INJ, ONCE, 2016 [place] Stop date: 08/16/16 8:55:00 CDT ondansetron Route: IV, Drug Inactive 05/25/ MH (ANES) form: INJ, ONCE, 2016 [place] Stop date: 08/16/16 8:55:00 CDT Dilaudid (ANES) Route: IV, Drug Inactive 25/ MH form: INJ, ONCE, 2016 [place] Stop date: 08/16/16 8:55:00 CDT ceFAZolin (ANES) Route: IV, Drug Inactive 25/ MH form: INJ, ONCE, 2016 [place] Stop date: 08/16/16 8:34:00 CDT dexamethasone Route: IV, Drug Inactive 05/25/ MH (ANES) form: INJ, ONCE, 2016 [place] Stop date: 08/16/16 8:19:00 CDT propofol (ANES) Route: IV, Drug Inactive 05/25/ MH form: INJ, ONCE, 2016 [place] Stop date: 08/16/16 8:14:00 CDT midazolam (ANES) Route: IV, Drug Inactive 05/25/ MH form: SOLN, 2016 [place] ONCE, Stop date: 08/16/16 8:14:00 CDT ceFAZolin + 2 gm, Route: No Longer sodium chloride IVPB, ONCALL, Active 2016 [place] 0.9% INJ 100 mL Start date: 08/16/16 [...] oral delayed Daily, # 30 cap, 2016 [place] release capsule 0 Refill(s) Allergies, Adverse Reactions, Alerts No Known Medication Allergies Immunizations No Data Provided for This Section Results Order Results Value Reference Date Interpretation Comments Source Name Range URINE U Preg Negative Negative CHEM (08/16/16 5:48 AM) 017 [place] Pathology Reports No Data Provided for This Section Diagnostic Reports Report Value Date Source Calcaneus series DX Patient Name: HONEY BANG 08/16/2016 [facility] : 1990; Age: 26 years y/o Female MR: [id number] Study: Calcaneus series DX 08/16/2016 8:54 AM [...] calcaneal fragment at the osteotomy site. SL: [id number] Ankle wo contrast MRI EXAM: MR LEFT [...] Comments Source Systolic (mm Hg) 116 08/16/2016 [facility] Diastolic (mm Hg) 72 08/16/2016 [facility] Respitory Rate 16 08/16/2016 [facility] Respitory Rate 12 08/16/2016 [facility] Systolic (mm Hg) 122 08/16/2016 [facility] Diastolic (mm Hg) 77 08/16/2016 [facility] Systolic (mm Hg) 122 08/16/2016 [facility] Diastolic (mm Hg) 80 08/16/2016 [facility] Respitory Rate 10 08/16/2016 [facility] Height 160.02 cm 08/15/2016 [facility] BMI Calculated 28.22 08/15/2016 [facility] Weight 72.273 08/15/2016 [facility] Weight 72.727 10/03/2011 [facility] Height 157.48 cm 10/03/2011 [facility] Encounters Location Location Encounter Encounter Reason Attending ADM DC Status Source Details Type Number For Provider Date Date Visit [facility] Outpatient [id number] PADMINI OROZCO 10/02 Active [facility] 1 [facility]UROPAT Center [facility] Outpt Diag [id number] Francy 04/27 04/28 [facility] OP Therapy [id number] Francy 05/04 06/03 [facility] Patients 0 Sw [facility] [id number] Lillie 08/16 08/16 John 2 [place] /2016 [facility] Procedures Procedure Code Date Perfomer Comments Source Ankle joint [id number] biopsy of [facility] operations<sup>1 ankle nerve </sup> section [id number] [facility] Assessment and Plan No Data Provided [...]
--- OUTSIDE RECORDS SUMMARY | 2018-12-04 09:25 | XMS REPORT ---
:1990 [facility] [address] [place] [address] Dr. Ravi [address] [place] [id number] Care Team Providers Name Role Phone Unavailable Unavailable Unavailable Problems This patient has no known problems. Allergies, Adverse Reactions, Alerts This patient has no known allergies or adverse reactions. Medications This patient has no known medications.
[2018-12-04] MEDS: MEPERIDINE HCL 25 MG/0.5 ML ONE ×2 (10:55→11:00)
[2018-12-04] MEDS ORDERED: CODEINE 30MG/APAP 300MG TAB PO ONE (11:30)
[2018-12-04] MEDS ORDERED: CODEINE 30MG/APAP 300MG TAB ONE (11:37)
[2018-12-04 12:37] VITALS: BP 116/69; TEMP 96.8; O2SAT 100
--- NOTE | 2018-12-04 22:09 | OP ---
Surgeon: Sonu Benz MD Preoperative Diagnosis: Amputation of the tip of the left little finger. Postoperative Diagnosis: Amputation of the tip of the left little finger. Procedure Performed: Debridement of skin and subcutaneous tissue, flap closure. Anesthesia: General. Description Of Procedure: After satisfactory induction of general anesthesia, the right hand was pre pped with Betadine scrub, Betadine paint, dry sterile drapes applied in the usual manner. The arm wa s elevated and exsanguinated. Esmarch tourniquet was inflated to 250 mmHg. Hand placed on the Rot ok table. A scalpel forceps and scissors were used to debride the crushed tissue from amputation edg es of the left little finger. This was in the ulnar aspect of the distal phalanx volarly and was up to, but not including the nail bed. After the tissue was debrided, the wound was jet lavaged, irriga letitia with 3 L of dilute solution. Portion of bone was exposed, flap was advanced from dorsal to volar and from radial and ulnar pulling the wound, closed with 4 Prolene horizontal mattresses or simple s utures. Dressed with Xeroform, 2 inch Ashley. The patient tolerated the procedure well and returned to recovery. JOSÉ MANUEL/REMI Voice ID: [id number] Report ID: [id number]
== END 2018-12-04 12:05 | disposition home or self-care (01) ==
LOC: OR 09:07
PROVIDERS: ATTEND Specialist
PROC: 0HXGXZZ Transfer Left Hand Skin, External Approach (ICD-10-PCS; principal; 2018-12-04 10:00)
DX: S68.627A Partial traumatic transphalangeal amputation of left little finger, initial encounter (principal)
CPT/HCPCS: 81025; 88304; 14040; J2704; J2250; J3010; J1100; J2175; J0690; J2405

== ENCOUNTER 2020-10-30 20:30 | Emergency (ER) | payer OTHER ==
--- OUTSIDE RECORDS SUMMARY | 2020-10-30 20:33 | XMS REPORT | Continuity of Care Document ---
:1990 Author Organization [facility] t Address [address] [place] [address] Care Team Providers Name Role Phone VALENTINA AREVALO M.D. 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 s c c Depression Depression Problem Active U nivers ity of [place] [facility]ici ans Angelman Angelman Problem Active Unive rs syndrome syndrome ity of [place] Physici ans Left ankle Left ankle Problem Active U nivers pain pain ity of [place] [facility] ans Heel cord Heel cord Problem Active Uni vers contractur contractur it y of e e [place] [facility] ans Subfibular Subfibular Problem Active U nivers impingemen impingemen it y of t, left t, left [place] Physici ans Contractur Contractur Problem Active U nivers e of left e of left ity of Achilles Achilles [place] tendon tendon Physici ans Gait Gait Problem Active Univers difficulty difficulty it y of [place] [facility] ans Dyspnea on Dyspnea on Problem Active U nivers exertion exertion ity of [place] [facility]ici ans Allergies, Adverse Reactions, Alerts This patient has no known allergies or adverse reactions. Family History Family Member Diagnosis Comments Start Date Stop Date Source Mother Family history of Univers ity of hyperlipidemia [place] [facility] icians Social History Smoking Status Start Date Stop Date Source [facility] Medications Ordered Filled Start Stop Current Ordering Indication Dosage Frequency Signature Comments Components Source Medication Medication Date Date Medication? Clinician (SIG) Name Name DULoxetine DULoxetine Yes VALENTINA AREVALO Take 1 Univers HCl - 30 MG HCl - 30 MG 9-01 M.D. capsule ity of Oral Oral 00:00: daily with [place] Capsule Capsule 00 60 mg Physici Delayed Delayed caps. TDD: ans Release Release 90 mg QDAY Particles Particles TDD:90 mg QDAY Vital Signs Vital Name Observation Time Observation Value Comments Source Systolic blood 2019-10-06 138 mm[Hg] Location: [facility] 15:25:00 Position: [place] Physician s Sitting Diastolic blood 2019-10-06 90 mm[Hg] Location: [facility] 15:25:00 Position: [place] Physician s Sitting Body height 2019-10-06 63 [in_us] [facility] 15:25:00 [place] Physician s Weight 2019-10-06 159.4 [lb_av] [facility] 15:25:00 [place] [facility]ician s Body mass index 2019-10-06 28.24 kg/m2 [place] [facility] f (BMI) [Ratio] 15:25:00 [facility] Heart Rate 2019-10-06 99 /min [facility] 15:25:00 [place] Physician s Body temperature 2019-10-06 97.1 [degF] Method: [facility] 15:25:00 [facility] Physician s Procedures Procedure Date / Time Performed Performing Clinician Ladarius e PFT 2019-10-06 00:00:00 [place] [facility] [place] Physicians History of [facility] [place] [facility] Physicians History of Ankle [facility] Physicians Plan of Care Planned Activity Planned Date Details Comments Source Diagnostic Test 2019-10-06 PFT [code = PFT] [facility] Pending 00:00:00 Physicians Encounters Start End Encounter Admission Attending Care Care Encounter Source Date/Time Date/Time Type Type Clinicians Facility Department ID 2019-10-14 Outpatient [facility] MED [id number] [facility] 10:09:45 2019-11-24 2019-11-24 JANELL Caal Neurology - [id number] [facility] 12:45:00 12:45:00 VALENTINA Aguirre M.D. [facility] Ryne M.D. [facility] Physici ans 2019-10-06 2019-10-06 JANELL Caal Neurology - [id number] [facility] 15:30:00 15:30:00 t; VALENTINA AREVALO M.D. [facility] ty of Toni MONTGOMERY. [facility] Physici ans Results This patient has no known results.
--- NOTE | 2020-10-30 22:13 | RAD REPORT ---
EXAM DESCRIPTION: RAD - Shoulder Right 2 View - 10/30/2020 9:58 pm CLINICAL HISTORY: PAIN COMPARISON: No comparisons FINDINGS: No right shoulder fracture or dislocation. IMPRESSION: No acute osseous abnormality involving the right shoulder.
[2020-10-30 23:20] LABS: Urine Blood Negative (Negative); Urine Glucose Negative (Negative); Urine Protein Negative (Negative); Urine pH 7.5 (5.0-7.0)
--- NOTE | 2020-10-31 01:06 | ER ---
Nurse's Notes [facility] Name: Marii Capps Age: 30 yrs Sex: Female : 1990 Arrival Date: 10/30/2020 Time: 20:33 Bed 11 Private MD: Diagnosis: Right shoulder shoulder strain Presentation: 10/30 21:18 Chief complaint: Patient states: Left shoulder pain. Pt fell and her arm fell on a kg table and her body went down and pacheco her left shoulder. Coronavirus screen: Client denies travel out of the [place] in the last 14 days. At this time, unable to obtain information related to travel outside the [place] At this time, the client does not indicate any symptoms associated with coronavirus-19. Ebola Screen: Patient negative for fever greater than or equal to 101.5 degrees Fahrenheit, and additional compatible Ebola Virus Disease symptoms Patient denies exposure to infectious person. Patient denies travel to an Ebola-affected area in the 21 days before illness onset. Initial Sepsis Screen: Does the patient meet any 2 criteria? No. Patient's initial sepsis screen is negative. Does the patient have a suspected source of infection? No. Patient's initial sepsis screen is negative. Risk Assessment: Do you want to hurt yourself or someone else? Patient reports no desire to harm self or others. Onset of symptoms was October 30, 2020 at 19:30. 21:18 Method Of Arrival: Wheelchair kg 21:18 Acuity: MADELEINE 4 kg Triage Assessment: 21:20 General: Appears in no apparent distress. Behavior is calm, cooperative, quiet. Pain: kg Complains of pain in Left shoulder Pain currently is 9 out of 10 on a pain scale. at worst was 10 out of 10 on a pain scale. level that patient reports is acceptable is 3 out of 10 on a pain scale. Quality of pain is described as throbbing, Pain began 2 hours ago. 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 - Social history:: Smoking status: Reported history of juuling and/or vaping. Screenin:24 Abuse screen: Denies threats or abuse. Denies injuries from another. Nutritional kg screening: No deficits noted. Tuberculosis screening: No symptoms or risk factors identified. Fall Risk None identified. Assessment: 10/31 01:31 General: Appears in no apparent distress. Pain: Complains of pain in right shoulder. lp1 Neuro: Level of Consciousness is awake, alert, obeys commands. Respiratory: Respiratory effort is even, unlabored. EENT: No signs and/or symptoms were reported regarding the EENT system. Derm: Skin is pink, warm \T\ dry. Musculoskeletal: Circulation, motion, and sensation intact. Reports pain in right shoulder pain with ROM. Vital Signs: 10/30 21:18 BP 118 / 68; Pulse 100; Resp 20; Temp 98.1(TE); Pulse Ox 99% ; Weight 72.12 kg (R); kg Height 5 ft. 3 in. (160.02 cm); Pain 9/10; 21:18 Body Mass Index 28.17 (72.12 kg, 160.02 cm) kg ED Course: 20:33 Patient arrived in ED. bp1 21:20 Triage completed. kg 21:20 Arm band placed on left wrist. kg 21:24 Patient has correct armband on for positive identification. kg 21:58 Shoulder Right 2 View In Process Unspecified. EDMS 10/31 00:44 Eddie Perez MD is Attending Physician. pkl 01:05 Magdaleno Dillon MD is Referral Physician. pkl 01:30 Amber Dwyer, ANNA is Primary Nurse. lp1 01:32 No provider procedures requiring assistance completed. Patient did not have IV access lp1 during this emergency room visit. 01:32 Sling applied to right arm. lp1 Administered Medications: 01:30 Drug: Motrin (ibuprofen) 400 mg Route: PO; lp1 01:32 Follow up: Response: Medication administered at discharge. lp1 Outcome: 01:06 Discharge ordered by . pkl 01:32 Discharged to home ambulatory, with significant other. lp1 01:32 Condition: good 01:32 Discharge instructions given to patient, Instructed on discharge instructions, follow up and referral plans. medication usage, Demonstrated understanding of instructions, follow-up care, medications, Prescriptions given X 1. 01:33 Patient left the ED. lp1 Signatures: Dispatcher [employer] EDMS Eddie Perez MD MD pkl Pena, Laura, RN RN lp1 Alejandra Baer Kristen RN RN kg
--- NOTE | 2020-10-31 01:07 | EDPHYS ---
Physician Documentation [facility] Name: Marii Capps Age: 30 yrs Sex: Female : 1990 Arrival Date: 10/30/2020 Time: 20:33 Bed 11 Private MD: ED Physician Eddie Perez HPI: 10/31 01:02 This 30 yrs old Female presents to ER via Wheelchair with complaints of Fall pkl Injury, Shoulder Injury. 01:02 The patient or guardian complains of an injury, pain, that is acute. right shoulder. pkl Context: resulted from a fall. Onset: The symptoms/episode began/occurred just prior to arrival. Associated signs and symptoms: The patient has no apparent associated signs or symptoms. 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 - Social history:: Smoking status: Reported history of juuling and/or vaping. ROS: 10/31 01:02 Eyes: Negative for injury, pain, redness, and discharge, ENT: Negative for injury, pkl pain, and discharge, Neck: Negative for injury, pain, and swelling, Cardiovascular: Negative for chest pain, palpitations, and edema, Respiratory: Negative for shortness of breath, cough, wheezing, and pleuritic chest pain, Abdomen/GI: Negative for abdominal pain, nausea, vomiting, diarrhea, and constipation, Back: Negative for injury and pain, : Negative for injury, bleeding, discharge, and swelling, Skin: Negative for injury, rash, and discoloration, Neuro: Negative for headache, weakness, numbness, tingling, and seizure. MS/extremity: Positive for pain, tenderness, of the right shoulder. Exam: 01:02 Head/Face: Normocephalic, atraumatic. Eyes: Pupils equal round and reactive to light, pkl extra-ocular motions intact. Lids and lashes normal. Conjunctiva and sclera are non-icteric and not injected. Cornea within normal limits. Periorbital areas with no swelling, redness, or edema. ENT: Nares patent. No nasal discharge, no septal abnormalities noted. Tympanic membranes are normal and external auditory canals are clear. Oropharynx with no redness, swelling, or masses, exudates, or evidence of obstruction, uvula midline. Mucous membranes moist. Neck: Trachea midline, no thyromegaly or masses palpated, and no cervical lymphadenopathy. Supple, full range of motion without nuchal rigidity, or vertebral point tenderness. No Meningismus. Chest/axilla: Normal chest wall appearance and motion. Nontender with no deformity. No lesions are appreciated. Cardiovascular: Regular rate and rhythm with a normal S1 and S2. No gallops, murmurs, or rubs. Normal PMI, no JVD. No pulse deficits. Respiratory: Lungs have equal breath sounds bilaterally, clear to auscultation and percussion. No rales, rhonchi or wheezes noted. No increased work of breathing, no retractions or nasal flaring. Abdomen/GI: Soft, non-tender, with normal bowel sounds. No distension or tympany. No guarding or rebound. No evidence of tenderness throughout. Back: No spinal tenderness. No costovertebral tenderness. Full range of motion. Neuro: Awake and alert, GCS 15, oriented to person, place, time, and situation. Cranial nerves II-XII grossly intact. Motor strength 5/5 in all extremities. Sensory grossly intact. Cerebellar exam normal. Normal gait. 01:02 Musculoskeletal/extremity: Extremities: grossly normal except: noted in the right shoulder: decreased ROM, pain, tenderness. Vital Signs: 10/30 21:18 BP 118 / 68; Pulse 100; Resp 20; Temp 98.1(TE); Pulse Ox 99% ; Weight 72.12 kg (R); kg Height 5 ft. 3 in. (160.02 cm); Pain 9/10; 21:18 Body Mass Index 28.17 (72.12 kg, 160.02 cm) kg MDM: 10/31 00:44 Patient medically screened. [facility] 01:02 Data reviewed: vital signs, nurses notes, radiologic studies, plain films. [facility] 10/30 23:19 Order name: Urine Dipstick-Ancillary; Complete Time: 00:11 EDMS 10/30 21:24 Order name: Urine Test (obtain specimen); Complete Time: 00:45 kg 10/30 21:46 Order name: Shoulder Right 2 View; Complete Time: 22:30 EDMS 10/31 01:01 Order name: Sling; Complete Time: 01:30 pkl Administered Medications: 01:30 Drug: Motrin (ibuprofen) 400 mg Route: PO; lp1 01:32 Follow up: Response: Medication administered at discharge. lp1 Disposition Summary: 10/31/20 01:06 Discharge Ordered Location: Home pkl Problem: new pkl Symptoms: have improved pkl Condition: Stable pkl Diagnosis - Right shoulder shoulder strain pkl Followup: pkl - With: Magdaleno Dillon MD - When: 2 - 3 days - Reason: Re-evaluation by your physician Discharge Instructions: - Discharge Summary Sheet pkl Forms: - Medication Reconciliation Form pkl - Thank You Letter pkl - Antibiotic Education pkl - Prescription Opioid Use pkl Prescriptions: - Diclofenac Sodium 75 mg Oral tablet,delayed release (DR/EC) - take 1 tablet by ORAL route 2 times per day; 20 tablet; Refills: 0, Product pkl Selection Permitted Signatures: Dispatcher [employer] EDEddie Bermudez MD MD pkl Amber Dwyer, RN RN lp1 Orville Mata FNP-C [id number] Martha Jim RN RN kg Corrections: (The following items were deleted from the chart) 10/30 21:46 21:25 Shoulder Left 2 View+RAD.RAD.BRZ ordered. EDMS EDMS
[2020-10-31] MEDS ORDERED: IBUPROFEN 200 MG TAB PO ONE (01:38)
[2020-10-31 01:40] VITALS: BP 118/68; TEMP 98.1; O2SAT 99
== END 2020-10-31 01:33 | disposition home or self-care (01) ==
LOC: ER 20:30
DX: S46.911A Strain of unspecified muscle, fascia and tendon at shoulder and upper arm level, right arm, initial encounter (principal); W19.XXXA Unspecified fall, initial encounter; F32.9 Major depressive disorder, single episode, unspecified
CPT/HCPCS: 81003; 99284

== ENCOUNTER 2023-02-16 01:19 | Emergency (ER) | payer OTHER ==
--- OUTSIDE RECORDS SUMMARY | 2023-02-16 01:23 | XMS REPORT | Continuity of Care Document ---
:1990 Author Organization [facility] t Address [address] [facility] [address] [place] [address] Care Team Providers Name Role Phone ALYSHA AREVALO Attending Clinician Unavailable VIKASH BHATIA Attending Clinician Unavailable VALENTINA AREVALO M.D. 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 Depression Depression Problem Active U T Physici ans 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 Family History Family Member Diagnosis Comments Start Date Stop Date Source Mother Family history of [facility] Phys icians hyperlipidemia Social History Smoking Status Start Date Stop Date Source Never smoked tobacco (finding) U [facility] Physicians Medications Ordered Filled Start Stop Current Ordering Indication Dosage Frequency Signature Comments Components Source Medication Medication Date Date Medication? Clinician (SIG) Name Name DULoxetine DULoxetine Yes THY MICKEY Take 1 [facility] HCl - 30 MG HCl - 30 MG 9-01 M.D. capsule Physici Oral Oral 00:00: daily with ans Capsule Capsule 00 60 mg Delayed Delayed caps. TDD: Release Release 90 mg QDAY Particles Particles TDD:90 mg QDAY Vital Signs Vital Name Observation Time Observation Value Comments Source Systolic blood 2019-10-06 15:25:00 138 mm[Hg] Location: LUE; [place] [facility] pressure Position: Sitting Diastolic blood 2019-10-06 15:25:00 90 mm[Hg] Location: [place]UE; [place] Phys[facility] pressure Position: Sitting Body height 2019-10-06 15:25:00 63 [in_us] [facility] Weight 2019-10-06 15:25:00 159.4 [lb_av] [facility] Body mass index 2019-10-06 15:25:00 28.24 kg/m2 [facility] (BMI) [Ratio] Heart Rate 2019-10-06 15:25:00 99 /min [facility] Body temperature 2019-10-06 15:25:00 97.1 [degF] Method: [facility] Temporal Procedures Procedure Date / Time Performed Performing Clinician Soursabina e PFT 2019-10-06 00:00:00 [facility] Phys[facility] s History of Section [facility] History of Ankle surgery [facility] Plan of Care Planned Activity Planned Date Details Comments Source Diagnostic Test Pending 2019-10-06 00:00:00 PFT [code = PFT] [facility] Encounters Start End Encounter Admission Attending Care Care Encounter Source Date/Time Date/Time Type Type Clinicians Facility Department ID 2022-07-21 Outpatient [facility] [id number] [place] 10:29:59 [id number] [facility] 2022-02-06 Outpatient [facility] [id number] [place] 10:26:57 [id number] [facility] 2022-01-30 Outpatient [facility] [id number] [place] 10:30:36 [id number] [facility] 2019-10-14 Outpatient AREVALO, [facility] [id number] [facility] 10:09:45 2022-07-21 2022-07-21 Outpatient [facility] [id number] [place] 13:03:58 13:03:58 [id number] F Ziyad 2022-02-20 2022-02-20 Outpatient SRIRAM, [facility] [id number] [place] 08:45:00 08:45:00 [facility] 2019-11-24 2019-11-24 JANELL Caal Neurology - [id number] [place] 12:45:00 12:45:00 t; VALENTINA AREVALO M.D. [place] [facility] THY, M.D. [facility] 2019-10-06 2019-10-06 JANELL Caal Neurology [id number] [place] 15:30:00 15:30:00 t; VALENTINA AREVALO M.D. [place] [facility] THY, M.D. [facility] Results This patient has no known results.
--- NOTE | 2023-02-16 01:39 | ER ---
Nurse's Notes [facility] Name: Marii Capps Age: 32 yrs Sex: Female : 1990 Arrival Date: 02/16/2023 Time: 01:19 Bed 10 Private MD: Diagnosis: Acute tonsillitis, unspecified Presentation: 02/16 01:31 Chief complaint: Patient states: fever, body aches started last wk, Saturday sore rv throat started. pain progressed. unable to eat and drink, and talk properly. Coronavirus screen: At this time, the client does not indicate any symptoms associated with coronavirus-19. Ebola Screen: No symptoms or risks identified at this time. Initial Sepsis Screen: Does the patient meet any 2 criteria? No. Patient's initial sepsis screen is negative. Does the patient have a suspected source of infection? No. Patient's initial sepsis screen is negative. Risk Assessment: Do you want to hurt yourself or someone else? Patient reports no desire to harm self or others. Onset of symptoms was February 16, 2023. 01:31 Method Of Arrival: Ambulatory rv :31 Acuity: MADELEINE 3 rv Triage Assessment: 01:33 General: Appears uncomfortable, Behavior is calm, cooperative. Pain: Complains of pain rv in throat. Neuro: Level of Consciousness is awake, alert, obeys commands, Oriented to person, place, time, situation. Cardiovascular: Capillary refill < 3 seconds Patient's skin is warm and dry. Respiratory: Airway is patent Respiratory effort is even, unlabored, Breath sounds are clear bilaterally. GI: No signs and/or symptoms were reported involving the gastrointestinal system. : No signs and/or symptoms were reported regarding the genitourinary system. Derm: Skin is intact. Historical: - Allergies: 01:38 No Known Allergies; rv - Home Meds: 01:33 Atarax 10 mg Oral tab 10 mg [Active]; fluoxetine 90 mg Oral cpDR 1 cap [Active]; rv - PMHx: :33 Anxiety; depressive disorder; HYPOGLYCEMIA; rv - PSHx: :33 left foot sx; rv - Immunization history:: Adult Immunizations up to date. - Social history:: Smoking status: unknown. Screenin:48 [facility] ED Fall Risk Assessment (Adult) History of falling in the last 3 months, rv including since admission No falls in past 3 months (0 pts) Score/Fall Risk Level 0 - 2 = Low Risk Oriented to surroundings, Maintained a safe environment, Educated pt \T\ family on fall prevention, incl call for assistance when getting out of bed. Abuse screen: Denies threats or abuse. Denies injuries from another. Nutritional screening: No deficits noted. Tuberculosis screening: No symptoms or risk factors identified. Assessment: 01:48 Cardiovascular: No deficits noted. Cardiovascular: Capillary refill < 3 seconds rv Patient's skin is warm and dry. Respiratory: No deficits noted. Respiratory: Airway is patent Respiratory effort is even, unlabored. Vital Signs: 01:31 BP 134 / 84; Pulse 100; Resp 20; Temp 98.4; Pulse Ox 100% ; rv ED Course: 01:28 Patient arrived in ED. gm2 01:30 Jennifer Snell FNP-C is [facility]. kb 01:30 Guillermo Mackay MD is Attending Physician. kb 01:33 Triage completed. rv 01:33 Arm band placed on right wrist. rv 01:48 No provider procedures requiring assistance completed. Inserted Patient did not have IV rv access during this emergency room visit. Administered Medications: 01:47 Drug: Dexamethasone IM 10 mg IM once Route: IM; Site: right deltoid; rv 01:48 Follow up: Response: Medication administered at discharge. rv 01:47 Drug: Amoxicillin-Clavulanate PO 875 mg PO once Route: PO; rv 01:47 Follow up: Response: No adverse reaction rv Medication: 01:48 VIS not applicable for this client. rv Outcome: 01:39 Discharge ordered by MD. kb 01:48 Discharged to home ambulatory, with family, rv 01:48 Condition: good 01:48 Discharge instructions given to patient, family, Instructed on discharge instructions, follow up and referral plans. medication usage, Demonstrated understanding of instructions, follow-up care, medications, Prescriptions given X 1, 01:49 Patient left the ED. rv Signatures: Jennifer Snell FNP-C FNP-Ckb Vicente, Ronaldo, RN RN Payton Jean gm2
--- NOTE | 2023-02-16 01:39 | EDPHYS ---
Physician Documentation [facility] Name: Marii Capps Age: 32 yrs Sex: Female : 1990 Arrival Date: 02/16/2023 Time: 01:19 Bed 10 Private MD: ED Physician Guillermo Mackay HPI: 02/16 01:37 This 32 yrs old Female presents to ER via Ambulatory with complaints of Fever, kb Cough, Congestion, Sore Throat. 01:37 Pt reports fever, bodyaches and sore throat started 3 days ago. States she hasn't been kb running fever today, but still has pain in the throat. States she has similar symptoms about twice a year and always tests negative for strep, but the symptoms resolve with antibiotics. Historical: - Allergies: 01:38 No Known Allergies; rv - Home Meds: 01:33 Atarax 10 mg Oral tab 10 mg [Active]; fluoxetine 90 mg Oral cpDR 1 cap [Active]; rv - PMHx: 01:33 Anxiety; depressive disorder; HYPOGLYCEMIA; rv - PSHx: 01:33 left foot sx; rv - Immunization history:: Adult Immunizations up to date. - Social history:: Smoking status: unknown. ROS: 01:37 Respiratory: Negative for shortness of breath, cough, wheezing, and pleuritic chest kb pain, 01:37 Constitutional: Positive for fever, 01:37 ENT: Positive for sore throat, 01:37 All other systems are negative, Exam: 01:37 Constitutional: This is a well developed, well nourished patient who is awake, alert, kb and in no acute distress. Head/Face: Normocephalic, atraumatic. Cardiovascular: Regular rate Respiratory: Respirations even and unlabored. No increased work of breathing. Talking in full sentences Skin: Warm, dry with normal turgor. Normal color. MS/ Extremity: Pulses equal, no cyanosis. Neurovascular intact. Full, normal range of motion. Neuro: Awake and alert, GCS 15, oriented to person, place, time, and situation. Moves all extremities. Normal gait. 01:37 ENT: Posterior pharynx: Airway: normal, no evidence of obstruction, Tonsils: bilaterally enlarged, with erythema, Uvula: normal, midline, swelling, that is mild, that is moderate, erythema, that is moderate, exudate, is not appreciated, Vital Signs: 01:31 BP 134 / 84; Pulse 100; Resp 20; Temp 98.4; Pulse Ox 100% ; rv MDM: 01:30 Patient medically screened. kb 01:36 Differential diagnosis: strep, tonsillitis, mono, ITEM PROCESSOR. Data reviewed: vital signs, kb nurses notes. Test considered but Not performed: Labs: strep test considered, but result would not change course of treatment. CT: CT neck considered but tonsils are enlarged bilaterally and evenly. Counseling: I had a detailed discussion with the patient and/or guardian regarding the historical points, exam findings, and any diagnostic results supporting the discharge/admit diagnosis, the need for outpatient follow up, an ENT specialist, to return to the emergency department if symptoms worsen or persist or if there are any questions or concerns that arise at home. Administered Medications: 01:47 Drug: Dexamethasone IM 10 mg IM once Route: IM; Site: right deltoid; rv 01:48 Follow up: Response: Medication administered at discharge. rv 01:47 Drug: Amoxicillin-Clavulanate PO 875 mg PO once Route: PO; rv 01:47 Follow up: Response: No adverse reaction rv Disposition: 02:09 Co-signature as Attending Physician, Guillermo Mackay MD I reviewed the patient's care rn provided by the Advanced Practice Provider and agree with the diagnosis and treatment plan. Disposition Summary: 02/16/23 01:39 Discharge Ordered Notes: Location: Home kb Condition: Stable kb Diagnosis - Acute tonsillitis, unspecified kb Followup: kb - With: Emergency Department - When: As needed - Reason: Worsening of condition Followup: kb - With: Private Physician - When: 2 - 3 days - Reason: Recheck today's complaints, Continuance of care, Re-evaluation by your physician Discharge Instructions: - Discharge Summary Sheet kb - Tonsillitis, [id number] kb Forms: - Medication Reconciliation Form kb - Thank You Letter kb - Antibiotic Education kb - Prescription Opioid Use kb - Patient Portal Instructions kb - Leadership Thank You Letter kb Prescriptions: - Augmentin 875-125 mg Oral Tablet - take 1 tablet ORAL route every 12 hours for 10 days; 20 tablet; Refills: 0, kb Product Selection Permitted Signatures: Jennifer Snell, [id number]-C EMERGENCY MANAGEMENT DIRECTOR-Ckb Mackay, Guillermo, MD MD rn Lalo, Nestor, RN RN rv
[2023-02-16] MEDS ORDERED: AMOX/K CLAV 875 MG TAB ONE (01:53)
[2023-02-16] MEDS ORDERED: dexAMETHasone 10 MG/ML VIAL ONE (01:53)
[2023-02-16 01:57] VITALS: BP 134/84; TEMP 98.4; O2SAT 100
== END 2023-02-16 01:49 | disposition home or self-care (01) ==
LOC: ER 01:19
DX: J03.90 Acute tonsillitis, unspecified (principal)
CPT/HCPCS: 96372; 99284; J1100

== ENCOUNTER 2023-02-18 11:58 | Emergency (ER) | payer OTHER ==
--- OUTSIDE RECORDS SUMMARY | 2023-02-18 12:01 | XMS REPORT | Continuity of Care Document ---
:1990 Author Organization [facility] t Address [address] [place] [address] Care Team Providers Name Role Phone VIKASH BHATIA Attending Clinician Unavailable VALENTINA AREVALO [...] DULoxetine DULoxetine Yes VALENTINA AREVALO Take 1 UT HCl - 30 MG HCl - 30 MG 9-01 M.D. capsule Physici Oral Oral 00:00: daily with ans Capsule Capsule 00 60 mg Delayed Delayed caps. TDD: Release Release 90 mg QDAY Particles Particles TDD:90 mg QDAY Vital Signs Vital Name Observation Time Observation Value Comments Source Weight 2019-10-06 15:25:00 159.4 [lb_av] [facility] Body mass index 2019-10-06 15:25:00 28.24 kg/m2 [facility] (BMI) [Ratio] Heart Rate 2019-10-06 15:25:00 99 /min [facility] Body temperature 2019-10-06 15:25:00 97.1 [degF] Method: [facility] Temporal Systolic blood 2019-10-06 15:25:00 138 mm[Hg] Location: LUE; [facility] pressure Position: Sitting Diastolic blood 2019-10-06 15:25:00 90 mm[Hg] Location: LUE; [facility] pressure Position: Sitting Body height 2019-10-06 15:25:00 63 [in_us] [facility] Procedures Procedure Date / Time Performed Performing Clinician Sourc e PFT 2019-10-06 00:00:00 [facility] History of Section [facility] History of Ankle surgery [facility] Plan of Care Planned Activity Planned Date Details Comments Source Diagnostic Test Pending 2019-10-06 00:00:00 PFT [code = PFT] [facility] Encounters Start End Encounter Admission Attending Care Care Encounter Source Date/Time Date/Time Type Type Clinicians Facility Department ID 2022-07-21 Outpatient [facility] [id number] [place] 10:29:59 [id number] [facility] 2022-02-06 Outpatient [facility] [id number] [place] 10:26:57 [id number] [facility] 2022-01-30 Outpatient [facility] [id number] [place] 10:30:36 [id number] [facility] 2022-07-21 2022-07-21 Outpatient JESICA MOONEY [id number] [place] 13:03:58 13:03:58 [id number] F Ziyad 2022-02-20 2022-02-20 Outpatient SRIRAM [facility] [id number] [place] 08:45:00 08:45:00 [facility] 2019-11-24 2019-11-24 JANELL Caal Neurology - [id number] [place] 12:45:00 12:45:00 t; VALENTINA AREVALO M.D. [place] [facility], M.D. [facility] 2019-10-06 2019-10-06 JANELL Caal Neurology [id number] ID 15:30:00 15:30:00 t; VALENTINA AREVALO M.D. [place] [facility], M.D. [facility] Results This patient has no known results.
[2023-02-18] MEDS ORDERED: HYDROCOD 2.5mg-ACETAMIN 108mg/5mL Soln ONE (13:00)
--- NOTE | 2023-02-18 13:11 | ER ---
Nurse's Notes [facility] Name: Marii Capps Age: 32 yrs Sex: Female : 1990 Arrival Date: 02/18/2023 Time: 11:58 Bed 7 Private MD: Diagnosis: Peritonsillar abscess Presentation: 02/18 12:09 Chief complaint: Patient states: "On Saturday, I had the flu. But now my tonsils are mb9 inflamed, hurting, and a pus pocket in my tonsils. I've had it before and it needed to be drained. I got steroids and antibiotics but they aren't helping.". Coronavirus screen: Vaccine status: Patient reports being unvaccinated. Ebola Screen: No symptoms or risks identified at this time. Initial Sepsis Screen: Does the patient meet any 2 criteria? No. Patient's initial sepsis screen is negative. Does the patient have a suspected source of infection? No. Patient's initial sepsis screen is negative. Risk Assessment: Do you want to hurt yourself or someone else? Patient reports no desire to harm self or others. Onset of symptoms was February 18, 2023. 12:09 Method Of Arrival: Ambulatory mb9 12:09 Acuity: MADELEINE 3 mb9 Triage Assessment: 12:12 General: Appears in no apparent distress. Behavior is cooperative. Pain: Complains of mb9 pain in throat. EENT: Oral mucosa is dry. Throat is reddened. Neuro: Guzman Agitation-Sedation Scale (RASS): 0 - Alert and Calm Level of Consciousness is awake, alert, obeys commands, Oriented to person, place, time, situation, Appropriate for age. Cardiovascular: Patient's skin is warm and dry. Respiratory: Airway is patent Respiratory effort is even, unlabored, Respiratory pattern is regular, symmetrical. GI: No signs and/or symptoms were reported involving the gastrointestinal system. : No signs and/or symptoms were reported regarding the genitourinary system. Derm: Skin is pink, warm \\T\\ dry. Musculoskeletal: Range of motion: intact in all extremities. 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 - Social history:: Smoking status: Patient reports the use of cigarette tobacco products, smokes one-half pack cigarettes per day. Screenin:02 [facility] ED Fall Risk Assessment (Adult) Score/Fall Risk Level 0 - 2 = Low Risk. Abuse iw screen: Denies threats or abuse. Denies injuries from another. Nutritional screening: No deficits noted. Tuberculosis screening: No symptoms or risk factors identified. Assessment: 14:02 Reassessment: Patient appears in no apparent distress at this time. Patient and/or iw family updated on plan of care and expected duration. Pain level reassessed. Patient is alert, oriented x 3, equal unlabored respirations, skin warm/dry/pink. 14:15 Respiratory: Airway is patent Breath sounds are clear. iw Vital Signs: 12:09 BP 125 / 84; Pulse 95; Resp 18; Temp 97.9(O); Pulse Ox 99% on R/A; Weight 72.57 kg; mb9 Height 5 ft. 3 in. ; 12:09 Body Mass Index 28.34 (72.57 kg, 160.02 cm) mb9 ED Course: 11:58 Patient arrived in ED. rg4 12:08 Rosa Bledsoe FNP-C is [facility]. snw 12:08 Garrick Ramsey DO is Attending Physician. snw 12:11 Triage completed. mb9 12:12 Arm band placed on. mb9 13:10 Rekha Garcia MD is Referral Physician. snw 13:32 Staci Juarez, ANNA is Primary Nurse. iw 14:03 IV discontinued, intact, bleeding controlled, No redness/swelling at site. Pressure iw dressing applied. 14:03 No provider procedures requiring assistance completed. iw 14:04 Patient has correct armband on for positive identification. Provided Education on: . iw Administered Medications: 12:49 Drug: Lortab PO Liquid 15 ml PO once Route: PO; hb 13:00 Follow up: Response: No adverse reaction; Pain is decreased iw 13:33 Drug: NS 0.9% IV 1000 ml IV at 1 bolus Per protocol; 1000 mL bolus Route: IV; Rate: 1 iw bolus; Site: right antecubital; 14:33 Follow up: IV Status: Completed infusion iw 13:33 Drug: Clindamycin IVPB 600 mg IVPB once over 30 mins; (mix in 50 mL) Route: IVPB; iw Infused Over: 30 mins; Site: right antecubital; 14:00 Follow up: IV Status: Completed infusion iw 13:33 Drug: Decadron - Dexamethasone IVP 10 mg IVP once Route: IVP; Site: right antecubital; iw 14:00 Follow up: Response: No adverse reaction iw Medication: 14:02 VIS not applicable for this client. iw Outcome: 13:10 Discharge ordered by MD. collado 14:03 Discharged to home via wheelchair, iw 14:03 Condition: good 14:03 Discharge instructions given to patient, family, Instructed on discharge instructions, follow up and referral plans. Demonstrated understanding of instructions, 14:04 Patient left the ED. iw Signatures: Rosa Bledsoe, SUPERVISOR HEADING-C SUPERVISOR HEADING-Csnw Staci Juarez RN RN Lo Casas, RN Christelle Randolph rg4 Kaylah Leblanc, RN RN mb9 Corrections: (The following items were deleted from the chart) 12:12 12:11 Home Meds: fluoxetine 90 mg Oral cpDR 1 cap; mb9 mb9 12:12 12:11 Home Meds: Atarax 10 mg Oral tab 10 mg; mb9 mb9
--- NOTE | 2023-02-18 13:11 | EDPHYS ---
Physician Documentation [facility] Name: Marii Capps Age: 32 yrs Sex: Female : 1990 Arrival Date: 02/18/2023 Time: 11:58 Bed 7 Private MD: ED Physician Garrick Ramsey HPI: 02/18 12:50 This 32 yrs old Female presents to ER via Ambulatory with complaints of Sore snw Throat, Lump On Neck. 12:50 The patient presents with sore throat. The patient describes throat pain as constant, snw raw, suffocating. Onset: The symptoms/episode began/occurred acutely. Associated signs and symptoms: Pertinent positives: flu-like symptoms, Sore throat. The patient has experienced similar episodes in the past. The patient has been recently seen by a physician: seen Saturday for sore throat, given amoxil and steroids, pain/s\T\s no better. 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 - Social history:: Smoking status: Patient reports the use of cigarette tobacco products, smokes one-half pack cigarettes per day. ROS: 12:49 Eyes: Negative for injury, pain, redness, and discharge, snw 12:49 Cardiovascular: Negative for chest pain, palpitations, and edema, Respiratory: Negative for shortness of breath, cough, wheezing, and pleuritic chest pain, 12:49 Back: Negative for injury and pain, : Negative for injury, bleeding, discharge, and swelling, MS/Extremity: Negative for injury and deformity, Skin: Negative for injury, rash, and discoloration, Neuro: Negative for headache, weakness, numbness, tingling, and seizure, 12:49 Constitutional: Positive for body aches, malaise, poor PO intake, 12:49 ENT: Positive for sore throat, painful lump to left lateral neck, 12:49 Abdomen/GI: Positive for decreased ability to eat, Exam: 12:48 Head/Face: Normocephalic, atraumatic. Eyes: Pupils equal round and reactive to light, snw extra-ocular motions intact. Lids and lashes normal. Conjunctiva and sclera are non-icteric and not injected. Cornea within normal limits. Periorbital areas with no swelling, redness, or edema. 12:48 Cardiovascular: Regular rate and rhythm with a normal S1 and S2. No gallops, murmurs, or rubs. Normal PMI, no JVD. No pulse deficits. Respiratory: Lungs have equal breath sounds bilaterally, clear to auscultation and percussion. No rales, rhonchi or wheezes noted. No increased work of breathing, no retractions or nasal flaring. Abdomen/GI: Soft, non-tender, with normal bowel sounds. No distension or tympany. No guarding or rebound. No evidence of tenderness throughout. Back: No spinal tenderness. No costovertebral tenderness. Full range of motion. Skin: Warm, dry with normal turgor. Normal color with no rashes, no lesions, and no evidence of cellulitis. MS/ Extremity: Pulses equal, no cyanosis. Neurovascular intact. Full, normal range of motion. Neuro: Awake and alert, GCS 15, oriented to person, place, time, and situation. Cranial nerves II-XII grossly intact. Motor strength 5/5 in all extremities. Sensory grossly intact. Cerebellar exam normal. Normal gait. Psych: Awake, alert, with orientation to person, place and time. Behavior, mood, and affect are within normal limits. 12:48 Constitutional: The patient appears alert, awake, uncomfortable, 12:48 ENT: Posterior pharynx: Tonsils: with erythema, sagging appearance of left, swelling, that is marked, Voice: is muffled, 12:48 Neck: External neck: Lymph nodes: lymphadenopathy is appreciated, anterior cervical nodes, Vital Signs: 12:09 BP 125 / 84; Pulse 95; Resp 18; Temp 97.9(O); Pulse Ox 99% on R/A; Weight 72.57 kg; mb9 Height 5 ft. 3 in. ; 12:09 Body Mass Index 28.34 (72.57 kg, 160.02 cm) mb9 MDM: 12:14 Patient medically screened. snw 12:37 ED course: consult pending with Dr. Garcia. snw 13:43 Differential diagnosis: apthous stomatitis, apthous ulcer, gingivostomatitis, group A snw strep tonsillitis, laryngitis, peritonsillar abscess tonsillitis. Data reviewed: vital signs, nurses notes. Management of patient was discussed with the following: Marine Electrician Apprentice: . I considered the following discharge prescriptions or medication management in the emergency department Medications were administered in the Emergency Department. See MAR. Counseling: I had a detailed discussion with the patient and/or guardian regarding the historical points, exam findings, and any diagnostic results supporting the discharge/admit diagnosis, the presence of at least one elevated blood pressure reading (>120/80) during this emergency department visit, the need for outpatient follow up, for definitive care, to return to the emergency department if symptoms worsen or persist or if there are any questions or concerns that arise at home. 13:44 ED course: Spoke with Dr. Garcia, recommends clindamycin, decadron and NS bolus IV and snw then she will see in her clinic. Administered Medications: 12:49 Drug: Lortab PO Liquid 15 ml PO once Route: PO; hb 13:00 Follow up: Response: No adverse reaction; Pain is decreased iw 13:33 Drug: NS 0.9% IV 1000 ml IV at 1 bolus Per protocol; 1000 mL bolus Route: IV; Rate: 1 iw bolus; Site: right antecubital; 14:33 Follow up: IV Status: Completed infusion iw 13:33 Drug: Clindamycin IVPB 600 mg IVPB once over 30 mins; (mix in 50 mL) Route: IVPB; iw Infused Over: 30 mins; Site: right antecubital; 14:00 Follow up: IV Status: Completed infusion iw 13:33 Drug: Decadron - Dexamethasone IVP 10 mg IVP once Route: IVP; Site: right antecubital; iw 14:00 Follow up: Response: No adverse reaction iw Disposition: 18:09 I was immediately available on-site in the Emergency Department for consultation in the ms3 care of the patient. Disposition Summary: 02/18/23 13:10 Discharge Ordered Notes: Location: Home snw Condition: Stable snw Diagnosis - Peritonsillar abscess snw Followup: snw - With: Rekha Garcia MD - When: Upon discharge from the Emergency Department - Reason: Recheck today's complaints, Continuance of care Discharge Instructions: - Discharge Summary Sheet snw - Peritonsillar Abscess snw - Pharyngitis snw Forms: - Medication Reconciliation Form snw - Thank You Letter snw - Antibiotic Education snw - Prescription Opioid Use snw - Patient Portal Instructions snw - Leadership Thank You Letter snw Signatures: Rosa Bledsoe, PATIENT SCHEDULING MANAGER-C PATIENT SCHEDULING MANAGER-Csnw Staci Juarez RN RN iw Lo Casas RN RN Garrick Ramsey DO DO ms3 Benji, Kaylah Ni RN RN mb9 Corrections: (The following items were deleted from the chart) 12:12 12:11 Home Meds: fluoxetine 90 mg Oral cpDR 1 cap; mb9 mb9 12:12 12:11 Home Meds: Atarax 10 mg Oral tab 10 mg; mb9 mb9
[2023-02-18] MEDS ORDERED: dexAMETHasone 10 MG/ML VIAL ONE (13:36)
[2023-02-18] MEDS ORDERED: NA CHLORIDE 0.9% 1,000 ML ONE (13:37)
[2023-02-18] MEDS ORDERED: CLINDAMYCIN 600MG/D5W 50 ML IV ONE (13:37)
[2023-02-18 14:38] VITALS: BP 125/84; TEMP 97.9; O2SAT 99
== END 2023-02-18 14:04 | disposition home or self-care (01) ==
LOC: ER 11:58
DX: J36 Peritonsillar abscess (principal); F17.210 Nicotine dependence, cigarettes, uncomplicated
CPT/HCPCS: 96365; 96361; 96375; 99284; J1100; J7030